=== PATIENT | male | born 1975 | race Caucasian/White ===

== ENCOUNTER → 2017-05-02 | Emergency (ER) | payer SELFPAY ==
[~2017-05-02] MED LIST: AMLO10TA2 PO; CYCL5TAB PO; FAMO-79 PO; HYDR-3240 PO; IBUP400T PO; LISI-170; LISI-170 PO; LISI40TA PO; LORA-445 PO; LORA-446 PO; LORA1TAB PO; METO-93 PO; METO-95; METO25TA35 PO; OMEP20TA62 PO; ONDA4TAB10; ONDA4TAB7 PO; ONDANSETRON 2MG/ML, 2ML ONE; PROP20TA PO; RANI150T8 PO; SERT50TA PO; [UNRECOGNIZED DRUG - REMARK]
[2017-05-05 09:23] LABS: ASPARTATE AMINO TRANSFERASE 30 U/L (15-37); BLOOD UREA NITROGEN 17 mg/dL (7-18)
== END ==
LOC: ED 11:47
DX: K52.9 Noninfective gastroenteritis and colitis, unspecified (principal); I10 Essential (primary) hypertension; F17.200 Nicotine dependence, unspecified, uncomplicated
CPT/HCPCS: 36415; 80048; 80076; 81001; 83690; 85025; 87086; 99284

== ENCOUNTER 2017-06-11 16:15 | Emergency (ER) | payer SELFPAY ==
[~2017-06-11] VITALS: Ht 167.6 cm; Wt 89.5 kg
[~2017-06-11 16:15] MED LIST changes: -ONDANSETRON 2MG/ML, 2ML ONE
[2017-06-11] MEDS ORDERED: OMEP20TA62 PO (16:23)
[2017-06-11] MEDS ORDERED: MAALOX/HYOSCYAMINE/LIDOCAINE 45 ML BOTTLE ONE (16:30)
[2017-06-11] MEDS ORDERED: MAALOX/HYOSCYAMINE/LIDOCAINE 45 ML BOTTLE PO ONE (16:30)
[2017-06-11] MEDS ORDERED: ONDANSETRON 2MG/ML, 2ML IVPush ONE (16:30)
[2017-06-11] MEDS ORDERED: ONDANSETRON 2MG/ML, 2ML ONE (16:30)
[2017-06-11] MEDS ORDERED: PLEASE ENTER HEIGHT AND WEIGHT MC SCH (16:30)
[2017-06-11] MEDS ORDERED: FAMOTIDINE 20 MG/2 ML ONE (16:30)
[2017-06-11] MEDS ORDERED: SODIUM CHLORIDE FLUSH 10ML SYR IVF ONE (16:30)
[2017-06-11] MEDS ORDERED: ENALAPRILAT 1.25 MG/ML, 2ML IV ONE (16:30)
[2017-06-11] MEDS ORDERED: SODIUM CHLORIDE 0.9% 1,000ML IVBOLUS ONE (16:30)
[2017-06-11] MEDS ORDERED: FAMOTIDINE 20 MG/2 ML IVP ONE (16:30)
[2017-06-11] MEDS ORDERED: ENALAPRILAT 1.25 MG/ML, 2ML ONE (16:53)
[2017-06-11 16:55] LABS: ASPARTATE AMINO TRANSFERASE 40 U/L (15-37); BLOOD UREA NITROGEN 14 mg/dL (7-18)
[2017-06-11 18:19] VITALS: BP 121/66
== END 2017-06-11 18:22 | disposition home or self-care (01) ==
LOC: ED 17:13
DX: K29.20 Alcoholic gastritis without bleeding (principal); K21.9 Gastro-esophageal reflux disease without esophagitis; I10 Essential (primary) hypertension; E86.0 Dehydration; F17.200 Nicotine dependence, unspecified, uncomplicated
CPT/HCPCS: 36415; 80053; 83690; 85025; 96361; 96374; 96375; 99285; J2405; J7030; S0028

== ENCOUNTER 2017-06-25 18:24 | Emergency (ER) | payer SELFPAY ==
[~2017-06-25] VITALS: Ht 167.6 cm; Wt 90.0 kg
[2017-06-25] MEDS ORDERED: LORazepam 2 MG/ML, 1ML IVPush ONE (19:00)
[2017-06-25] MEDS ORDERED: SODIUM CHLORIDE FLUSH 10ML SYR IVF ONE (19:00)
[2017-06-25] MEDS ORDERED: SODIUM CHLORIDE 0.9% 1,000ML IVBOLUS ONE (19:00)
[2017-06-25] MEDS ORDERED: LORazepam 2 MG/ML, 1ML ONE (19:01)
[2017-06-25 19:36] LABS: BLOOD UREA NITROGEN 11 mg/dL (7-18)
[2017-06-25 19:43] LABS: IS PT STATUS REG ER OR PRE ER? YES
[2017-06-25 19:54] VITALS: BP 119/76
== END 2017-06-25 20:42 | disposition home or self-care (01) ==
LOC: ED 19:40
DX: F41.1 Generalized anxiety disorder (principal); R06.4 Hyperventilation; I10 Essential (primary) hypertension; K21.9 Gastro-esophageal reflux disease without esophagitis; E86.0 Dehydration
CPT/HCPCS: 36415; 71010; 80048; 82040; 84484; 85025; 93005; 96361; 96374; 99285; J2060; J7030

== ENCOUNTER 2017-07-04 10:50 | Emergency (ER) | payer OTHER ==
[~2017-07-04] VITALS: Ht 167.6 cm; Wt 93.0 kg
[2017-07-04] MEDS ORDERED: ONDANSETRON 2MG/ML, 2ML IVPush ONE (11:00)
[2017-07-04] MEDS ORDERED: SODIUM CHLORIDE 0.9% 1,000ML IVBOLUS ONE (11:00)
[2017-07-04] MEDS ORDERED: FAMOTIDINE 20 MG/2 ML IVP ONE (11:00)
[2017-07-04] MEDS ORDERED: SODIUM CHLORIDE FLUSH 10ML SYR IVF ONE (11:00)
[2017-07-04] MEDS ORDERED: LORazepam 2 MG/ML, 1ML IVPush ONE (11:00)
[2017-07-04] MEDS ORDERED: ONDANSETRON 2MG/ML, 2ML ONE (11:01)
[2017-07-04] MEDS ORDERED: LORazepam 2 MG/ML, 1ML ONE (11:03)
[2017-07-04] MEDS ORDERED: FAMOTIDINE 20 MG/2 ML ONE (11:03)
[2017-07-04 11:33] LABS: HEMATOCRIT 53.2 % (39.2-51.8); WHITE BLOOD COUNT 5.7 x10^3/uL (3.4-10)
[2017-07-04 11:46] LABS: BLOOD UREA NITROGEN 14 mg/dL (7-18)
[2017-07-04 11:50] LABS: ASPARTATE AMINO TRANSFERASE 45 U/L (15-37)
[2017-07-04] MEDS ORDERED: MAALOX/HYOSCYAMINE/LIDOCAINE 45 ML BTL ONE (12:50)
[2017-07-04] MEDS ORDERED: MAALOX/HYOSCYAMINE/LIDOCAINE 45 ML BTL PO ONE (13:00)
[2017-07-04 15:09] VITALS: BP 123/87
== END 2017-07-04 15:11 | disposition home or self-care (01) ==
LOC: ED 15:00
DX: K29.20 Alcoholic gastritis without bleeding (principal); K21.9 Gastro-esophageal reflux disease without esophagitis; I10 Essential (primary) hypertension
CPT/HCPCS: 36415; 80053; 83605; 83690; 85025; 93005; 96361; 96374; 96375; 99285; J2060; J2405; J7030; S0028

== ENCOUNTER 2017-07-10 02:22 | Emergency (ER) | payer OTHER ==
[~2017-07-10] VITALS: Ht 167.6 cm; Wt 92.0 kg
[2017-07-10] MEDS ORDERED: SODIUM CHLORIDE FLUSH 10ML SYR IVF ONE (02:30)
[2017-07-10 02:56] LABS: HEMOGLOBIN 17.5 g/dL (13.7-18.0)
[2017-07-10 03:05] LABS: ASPARTATE AMINO TRANSFERASE 41 U/L (15-37); BLOOD UREA NITROGEN 12 mg/dL (7-18)
[2017-07-10 04:40] VITALS: BP 137/85
== END 2017-07-10 04:41 | disposition home or self-care (01) ==
LOC: ED 02:38
DX: K29.20 Alcoholic gastritis without bleeding (principal); I10 Essential (primary) hypertension; K21.9 Gastro-esophageal reflux disease without esophagitis; F17.200 Nicotine dependence, unspecified, uncomplicated
CPT/HCPCS: 36415; 80053; 81003; 83690; 85025; 99284

== ENCOUNTER 2017-08-20 18:06 | Emergency (ER) | payer OTHER ==
[~2017-08-20] VITALS: Ht 167.6 cm; Wt 89.4 kg
[~2017-08-20 18:06] MED LIST changes: +IBUP-1221 PO; -IBUP400T PO
[2017-08-20] MEDS ORDERED: HYDROcodone/APAP 7.5-325MG/15ML UDC ONE (18:27)
[2017-08-20] MEDS ORDERED: HYDROcodone/APAP 7.5-325MG/15ML UDC PO ONE (18:30)
[2017-08-20 18:33] LABS: HEMATOCRIT 54.6 % (39.2-51.8); HEMOGLOBIN 18.7 g/dL (13.7-18.0); WHITE BLOOD COUNT 9.8 x10^3/uL (3.4-10)
[2017-08-20 18:44] LABS: BLOOD UREA NITROGEN 15 mg/dL (7-18)
[2017-08-20 19:43] VITALS: BP 137/88
== END 2017-08-20 19:45 | disposition home or self-care (01) ==
LOC: ED 19:40
DX: J20.9 Acute bronchitis, unspecified (principal); F17.210 Nicotine dependence, cigarettes, uncomplicated; K21.9 Gastro-esophageal reflux disease without esophagitis; I10 Essential (primary) hypertension
CPT/HCPCS: 36415; 71020; 80048; 82040; 85025; 99285

== ENCOUNTER 2017-09-13 09:54 | Emergency (ER) | payer SELFPAY ==
[~2017-09-13] VITALS: Ht 167.6 cm; Wt 92.1 kg
[2017-09-13 10:30] LABS: HEMATOCRIT 52.7 % (39.2-51.8); HEMOGLOBIN 18.4 g/dL (13.7-18.0); WHITE BLOOD COUNT 6.1 x10^3/uL (3.4-10)
[2017-09-13] MEDS ORDERED: SODIUM CHLORIDE 0.9% 1,000ML IVBOLUS ONE (10:30)
[2017-09-13] MEDS ORDERED: ONDANSETRON 2MG/ML, 2ML IVPush ONE (10:30)
[2017-09-13] MEDS ORDERED: FAMOTIDINE 20 MG/2 ML IVPush ONE (10:30)
[2017-09-13] MEDS ORDERED: SODIUM CHLORIDE FLUSH 10ML SYR IVF ONE (10:30)
[2017-09-13] MEDS ORDERED: MORPHINE SULFATE 4 MG/ML, 1ML IVPush PRN (10:30)
[2017-09-13 10:44] LABS: BLOOD UREA NITROGEN 13 mg/dL (7-18)
[2017-09-13 10:48] LABS: ASPARTATE AMINO TRANSFERASE 48 U/L (15-37)
[2017-09-13] MEDS ORDERED: FAMOTIDINE 20 MG/2 ML ONE (11:25)
[2017-09-13] MEDS ORDERED: ONDANSETRON 2MG/ML, 2ML ONE (11:26)
[2017-09-13] MEDS ORDERED: OMNIPAQUE 350 MG/ML, 100ML BOTTLE ONE (11:47)
[2017-09-13 13:20] VITALS: BP 125/89
== END 2017-09-13 11:12 | disposition home or self-care (01) ==
LOC: ED 10:51
DX: K60.0 Acute anal fissure (principal); A09 Infectious gastroenteritis and colitis, unspecified
CPT/HCPCS: 36415; 74177; 80053; 85025; 85610; 85730; 96361; 96374; 96375; 99285; J2405; J7030; Q9967; S0028

== ENCOUNTER 2017-09-26 08:31 | Emergency (ER) | payer SELFPAY ==
[~2017-09-26] VITALS: Ht 167.6 cm; Wt 92.0 kg
[2017-09-26] MEDS ORDERED: MAALOX/HYOSCYAMINE/LIDOCAINE 45 ML BTL PO ONE (09:30)
[2017-09-26] MEDS ORDERED: LORazepam 2 MG/ML, 1ML IVPush ONE (09:30)
[2017-09-26] MEDS ORDERED: ONDANSETRON 2MG/ML, 2ML IVPush ONE (09:30)
[2017-09-26 09:53] LABS: HEMATOCRIT 54.6 % (39.2-51.8); HEMOGLOBIN 18.8 g/dL (13.7-18.0); WHITE BLOOD COUNT 4.5 x10^3/uL (3.4-10)
[2017-09-26 10:06] LABS: ASPARTATE AMINO TRANSFERASE 39 U/L (15-37); BLOOD UREA NITROGEN 13 mg/dL (7-18)
[2017-09-26] MEDS ORDERED: LORazepam 2 MG/ML, 1ML ONE (10:08)
[2017-09-26] MEDS ORDERED: ONDANSETRON 2MG/ML, 2ML ONE (10:08)
[2017-09-26] MEDS ORDERED: MAALOX/HYOSCYAMINE/LIDOCAINE 45 ML BTL ONE (10:09)
[2017-09-26 10:10] LABS: IS PT STATUS REG ER OR PRE ER? YES
[2017-09-26] MEDS ORDERED: PLEASE ENTER HEIGHT AND WEIGHT MC SCH (10:30)
[2017-09-26 11:52] VITALS: BP 135/83
[2017-09-26] MEDS ORDERED: LORA-446 PO (11:54)
[2017-09-26 12:15] LABS: IS PT STATUS REG ER OR PRE ER? YES
== END 2017-09-26 13:43 | disposition home or self-care (01) ==
LOC: ED 08:38
DX: I10 Essential (primary) hypertension (principal); F41.1 Generalized anxiety disorder; F17.210 Nicotine dependence, cigarettes, uncomplicated
CPT/HCPCS: 36415; 71010; 80053; 84484; 85025; 93005; 96374; 96375; 99285; J2060; J2405

== ENCOUNTER 2017-10-16 05:05 | Emergency (ER) | payer SELFPAY ==
[~2017-10-16] VITALS: Ht 167.6 cm; Wt 91.0 kg
[2017-10-16] MEDS ORDERED: ONDANSETRON 2MG/ML, 2ML IVPush ONE (05:30)
[2017-10-16] MEDS ORDERED: SODIUM CHLORIDE 0.9% 1,000ML IVBOLUS ONE (05:30)
[2017-10-16] MEDS ORDERED: MAALOX/HYOSCYAMINE/LIDOCAINE 45 ML BTL PO ONE (05:30)
[2017-10-16] MEDS ORDERED: SODIUM CHLORIDE FLUSH 10ML SYR IVF ONE (05:30)
[2017-10-16] MEDS ORDERED: FAMOTIDINE 20 MG/2 ML IVP ONE (05:30)
[2017-10-16] MEDS ORDERED: FAMOTIDINE 20 MG/2 ML ONE (05:36)
[2017-10-16] MEDS ORDERED: MAALOX/HYOSCYAMINE/LIDOCAINE 45 ML BTL ONE (05:36)
[2017-10-16] MEDS ORDERED: ONDANSETRON 2MG/ML, 2ML ONE (05:36)
[2017-10-16 06:14] LABS: HEMATOCRIT 49.8 % (39.2-51.8); WHITE BLOOD COUNT 6.8 x10^3/uL (3.4-10)
[2017-10-16 06:26] LABS: ASPARTATE AMINO TRANSFERASE 51 U/L (15-37); BLOOD UREA NITROGEN 13 mg/dL (7-18)
[2017-10-16 07:08] LABS: IS PT STATUS REG ER OR PRE ER? YES
[2017-10-16 07:16] VITALS: BP 127/72
== END 2017-10-16 08:18 | disposition home or self-care (01) ==
LOC: ED 05:32
DX: K29.20 Alcoholic gastritis without bleeding (principal); K21.9 Gastro-esophageal reflux disease without esophagitis; I10 Essential (primary) hypertension
CPT/HCPCS: 36415; 74022; 80053; 81003; 83690; 84484; 85025; 93005; 96361; 96374; 96375; 99285; J2405; J7030; S0028

== ENCOUNTER 2018-05-07 14:46 | Emergency (ER) | payer MEDICAID ==
[~2018-05-07] VITALS: Ht 167.6 cm; Wt 88.6 kg
[~2018-05-07 14:46] MED LIST changes: +LORA0.5T PO; +PANT20TA2 PO; +RANI150T23 PO; -RANI150T8 PO
[2018-05-07 14:50] VITALS: BP 175/98
== END 2018-05-07 15:33 | disposition home or self-care (01) ==
LOC: ED 15:32
DX: J00 Acute nasopharyngitis [common cold] (principal); J01.00 Acute maxillary sinusitis, unspecified
CPT/HCPCS: 71046; 99284

== ENCOUNTER 2018-05-14 13:51 | Emergency (ER) | payer MEDICAID ==
[~2018-05-14] VITALS: Ht 167.6 cm; Wt 88.1 kg
[2018-05-14] MEDS ORDERED: SODIUM CHLORIDE 0.9% 1,000ML IVBOLUS ONE (14:30)
[2018-05-14] MEDS ORDERED: FAMOTIDINE 20 MG/2 ML IVP ONE (14:30)
[2018-05-14] MEDS ORDERED: SODIUM CHLORIDE FLUSH 10ML SYR IVF ONE (14:30)
[2018-05-14] MEDS ORDERED: ONDANSETRON ODT 4 MG PO ONE (14:30)
[2018-05-14] MEDS ORDERED: MAALOX/HYOSCYAMINE/LIDOCAINE 45 ML BTL PO ONE (14:30)
[2018-05-14] MEDS ORDERED: MAALOX/HYOSCYAMINE/LIDOCAINE 45 ML BTL ONE (14:34)
[2018-05-14] MEDS ORDERED: FAMOTIDINE 20 MG/2 ML ONE (14:35)
[2018-05-14] MEDS ORDERED: ONDANSETRON ODT 4 MG ONE (14:35)
[2018-05-14 14:49] LABS: BASOPHILS # (AUTO) 0.03 x10^3/uL (0-0.1); BASOPHILS % (AUTO) 1 % (0-1); EOSINOPHILS # (AUTO) 0.13 x10^3/uL (0-0.4); EOSINOPHILS % (AUTO) 2 % (1-7); LYMPHOCYTES # (AUTO) 1.45 x10^3/uL (1-3.4); LYMPHOCYTES % (AUTO) 22 % (22-44); MD NO; MEAN CORPUSCULAR HGB CONC 34.2 g/dL (33.2-36.2); MEAN CORPUSCULAR VOLUME 99.3 fL (81-97); MEAN PLATELET VOLUME 7.3 fL (7.4-10.4); MONOCYTES # (AUTO) 0.55 x10^3/uL (0.2-0.8); MONOCYTES % (AUTO) 8 % (2-9); NEUTROPHILS # (AUTO) 4.56 x10^3/uL (1.8-6.8); NEUTROPHILS % (AUTO) 68 % (42-75); PLATELET COUNT 150 x10^3/uL (130-400); RED BLOOD COUNT 5.32 x10^6/uL (4.38-5.82); RED CELL DISTRIBUTION WIDTH 12.5 % (9.4-14.8)
[2018-05-14 15:02] LABS: TROPONIN I < 0.015 ng/mL (0.000-0.045)
[2018-05-14 15:07] LABS: ALANINE AMINOTRANSFERASE 68 U/L (12-78); ALBUMIN 3.8 g/dL (3.4-5.0); ANION GAP 8 mmol/L (5-15); CALCIUM 9.1 mg/dL (8.5-10.1); CHLORIDE 103 mmol/L (98-107); CREATININE 0.95 mg/dL (0.7-1.3)
[2018-05-14 15:09] LABS: ALKALINE PHOSPHATASE 109 U/L (45-117); BILIRUBIN,TOTAL 0.7 mg/dL (0.2-1.0); TOTAL PROTEIN 8.1 g/dL (6.4-8.2)
[2018-05-14 16:23] VITALS: BP 128/67
[2018-05-14] MEDS ORDERED: PROMETHAZINE 25 MG/ML, 1ML ONE (16:43)
[2018-05-14] MEDS ORDERED: OMNIPAQUE 350 MG/ML, 100ML BOTTLE ONE (16:45)
[2018-05-14] MEDS ORDERED: PROMETHAZINE 25 MG/ML, 1ML IM ONE (17:00)
== END 2018-05-14 17:31 | disposition home or self-care (01) ==
LOC: ED 17:05
DX: R10.32 Left lower quadrant pain (principal); R11.2 Nausea with vomiting, unspecified; E86.0 Dehydration; I10 Essential (primary) hypertension; K21.9 Gastro-esophageal reflux disease without esophagitis; F17.200 Nicotine dependence, unspecified, uncomplicated
CPT/HCPCS: 36415; 74177; 80053; 83690; 84484; 85025; 93005; 96372; 96374; 99285; J2550; J7030; Q0162; Q9967; S0028

== ENCOUNTER 2018-06-03 17:47 | Emergency (ER) | payer MEDICAID ==
[~2018-06-03] VITALS: Ht 167.6 cm; Wt 88.9 kg
[2018-06-03] MEDS ORDERED: MAALOX/HYOSCYAMINE/LIDOCAINE 45 ML BTL PO ONE (18:30)
[2018-06-03] MEDS ORDERED: FAMOTIDINE 20 MG TABLET PO ONE (18:30)
[2018-06-03 18:36] LABS: MICROSCOPIC NOT IND
[2018-06-03 18:38] LABS: CULTURE INDICATED? NO
[2018-06-03] MEDS ORDERED: FAMOTIDINE 20 MG TABLET ONE (18:55)
[2018-06-03] MEDS ORDERED: MAALOX/HYOSCYAMINE/LIDOCAINE 45 ML BTL ONE (18:55)
[2018-06-03 18:58] VITALS: BP 140/93
[2018-06-03 19:09] LABS: BASOPHILS # (AUTO) 0.03 x10^3/uL (0-0.1); BASOPHILS % (AUTO) 0 % (0-1); EOSINOPHILS # (AUTO) 0.12 x10^3/uL (0-0.4); EOSINOPHILS % (AUTO) 1 % (1-7); LYMPHOCYTES # (AUTO) 2.37 x10^3/uL (1-3.4); LYMPHOCYTES % (AUTO) 27 % (22-44); MD NO; MEAN CORPUSCULAR HEMOGLOBIN 34.7 pg (27.5-34.5); MEAN CORPUSCULAR HGB CONC 34.7 g/dL (33.2-36.2); MEAN CORPUSCULAR VOLUME 99.8 fL (81-97); MEAN PLATELET VOLUME 7.5 fL (7.4-10.4); MONOCYTES # (AUTO) 0.81 x10^3/uL (0.2-0.8); MONOCYTES % (AUTO) 9 % (2-9); NEUTROPHILS # (AUTO) 5.55 x10^3/uL (1.8-6.8); NEUTROPHILS % (AUTO) 63 % (42-75); PLATELET COUNT 155 x10^3/uL (130-400); RED BLOOD COUNT 5.15 x10^6/uL (4.38-5.82); RED CELL DISTRIBUTION WIDTH 12.6 % (9.4-14.8)
[2018-06-03 19:10] LABS: ALANINE AMINOTRANSFERASE 76 U/L (12-78); ALBUMIN 3.7 g/dL (3.4-5.0); ANION GAP 10 mmol/L (5-15); CALCIUM 8.5 mg/dL (8.5-10.1); CHLORIDE 104 mmol/L (98-107)
[2018-06-03 19:12] LABS: ALKALINE PHOSPHATASE 114 U/L (45-117); BILIRUBIN,TOTAL 0.6 mg/dL (0.2-1.0); TOTAL PROTEIN 7.7 g/dL (6.4-8.2)
[2018-06-03] MEDS ORDERED: SODIUM CHLORIDE 0.9% 1,000ML IVBOLUS ONE (20:00)
[2018-06-03] MEDS ORDERED: SODIUM CHLORIDE FLUSH 10ML SYR IVF ONE (20:00)
[2018-06-03] MEDS ORDERED: ONDANSETRON ODT 4 MG ONE (20:14)
[2018-06-03] MEDS ORDERED: ONDANSETRON ODT 4 MG PO ONE (20:30)
== END 2018-06-03 20:29 | disposition home or self-care (01) ==
LOC: ED 19:21
DX: K85.20 Alcohol induced acute pancreatitis without necrosis or infection (principal); K29.20 Alcoholic gastritis without bleeding; F10.10 Alcohol abuse, uncomplicated; I10 Essential (primary) hypertension; K21.9 Gastro-esophageal reflux disease without esophagitis
CPT/HCPCS: 36415; 80053; 81003; 83690; 85025; 99284; Q0162

== ENCOUNTER 2018-06-25 06:54 | Emergency (ER) | payer MEDICAID ==
[~2018-06-25] VITALS: Ht 167.6 cm; Wt 88.0 kg
[2018-06-25 07:08] VITALS: BP 129/88
[2018-06-25] MEDS ORDERED: KETOROLAC 30 MG/1 ML IM ONE (08:00)
[2018-06-25] MEDS ORDERED: DIAZEPAM 5 MG TABLET PO ONE (08:00)
[2018-06-25] MEDS ORDERED: KETOROLAC 30 MG/1 ML ONE (08:02)
[2018-06-25] MEDS ORDERED: DIAZEPAM 5 MG TABLET ONE (08:02)
== END 2018-06-25 08:56 | disposition home or self-care (01) ==
LOC: ED 08:50
DX: S39.012A Strain of muscle, fascia and tendon of lower back, initial encounter (principal); G89.29 Other chronic pain; M51.36 Other intervertebral disc degeneration, lumbar region; X58.XXXA Exposure to other specified factors, initial encounter; Y93.89 Activity, other specified; Y92.89 Other specified places as the place of occurrence of the external cause; Y99.8 Other external cause status
CPT/HCPCS: 72110; 96372; 99284; J1885

== ENCOUNTER 2018-08-03 06:40 | Emergency (ER) | payer MEDICAID ==
[~2018-08-03] VITALS: Ht 167.6 cm; Wt 90.9 kg
[~2018-08-03 06:40] MED LIST changes: -AMLO10TA2 PO; +AMLO10TA6 PO
[2018-08-03] MEDS ORDERED: LORazepam 1MG TABLET ONE (07:52)
[2018-08-03 07:55] VITALS: BP 130/81
[2018-08-03] MEDS ORDERED: LORazepam 1MG TABLET PO ONE (08:00)
== END 2018-08-03 08:41 | disposition home or self-care (01) ==
LOC: ED 08:20
DX: F41.1 Generalized anxiety disorder (principal); K21.9 Gastro-esophageal reflux disease without esophagitis
CPT/HCPCS: 99284

== ENCOUNTER 2018-08-19 05:22 | Emergency (ER) | payer MEDICAID ==
[~2018-08-19] VITALS: Ht 167.6 cm; Wt 90.0 kg
[2018-08-19] MEDS ORDERED: ESOM20CA PO (05:35)
[2018-08-19 05:55] LABS: BASOPHILS # (AUTO) 0.04 x10^3/uL (0-0.1); BASOPHILS % (AUTO) 0 % (0-1); EOSINOPHILS # (AUTO) 0.01 x10^3/uL (0-0.4); EOSINOPHILS % (AUTO) 0 % (1-7); LYMPHOCYTES # (AUTO) 1.43 x10^3/uL (1-3.4); LYMPHOCYTES % (AUTO) 12 % (22-44); MD NO; MEAN CORPUSCULAR HEMOGLOBIN 34.9 pg (27.5-34.5); MEAN CORPUSCULAR HGB CONC 34.8 g/dL (33.2-36.2); MEAN CORPUSCULAR VOLUME 100.3 fL (81-97); MEAN PLATELET VOLUME 7.5 fL (7.4-10.4); MONOCYTES # (AUTO) 0.93 x10^3/uL (0.2-0.8); MONOCYTES % (AUTO) 8 % (2-9); NEUTROPHILS # (AUTO) 9.41 x10^3/uL (1.8-6.8); NEUTROPHILS % (AUTO) 80 % (42-75); PLATELET COUNT 147 x10^3/uL (130-400); RED BLOOD COUNT 5.41 x10^6/uL (4.38-5.82); RED CELL DISTRIBUTION WIDTH 12.5 % (9.4-14.8)
[2018-08-19] MEDS ORDERED: FAMOTIDINE 20 MG/2 ML ONE (05:59)
[2018-08-19] MEDS ORDERED: LORazepam 2 MG/ML, 1ML ONE (05:59)
[2018-08-19] MEDS ORDERED: LORazepam 2 MG/ML, 1ML IVPush ONE (06:00)
[2018-08-19] MEDS ORDERED: FAMOTIDINE 20 MG/2 ML IVP ONE (06:00)
[2018-08-19] MEDS ORDERED: SODIUM CHLORIDE 0.9% 1,000ML IVBOLUS ONE (06:00)
[2018-08-19 06:06] LABS: ALANINE AMINOTRANSFERASE 83 U/L (12-78); ALBUMIN 3.9 g/dL (3.4-5.0); ANION GAP 12 mmol/L (5-15); CHLORIDE 103 mmol/L (98-107); CREATININE 0.88 mg/dL (0.7-1.3)
[2018-08-19 06:11] LABS: ALKALINE PHOSPHATASE 116 U/L (45-117); TOTAL PROTEIN 8.3 g/dL (6.4-8.2); TROPONIN I < 0.015 ng/mL (0.000-0.045)
[2018-08-19] MEDS ORDERED: OMNIPAQUE 350 MG/ML, 100ML BOTTLE ONE (06:37)
[2018-08-19] MEDS ORDERED: MORPHINE SULFATE 4 MG/ML, 1ML ONE (07:27)
[2018-08-19] MEDS ORDERED: morphine SULFATE 10 MG/ML, 1ML IVPush ONE (07:30)
[2018-08-19 07:59] VITALS: BP 138/93
== END 2018-08-19 08:11 | disposition home or self-care (01) ==
LOC: ED 06:09
DX: R10.31 Right lower quadrant pain (principal); R10.32 Left lower quadrant pain; F10.20 Alcohol dependence, uncomplicated; F15.20 Other stimulant dependence, uncomplicated
CPT/HCPCS: 36415; 71045; 74177; 80053; 80307; 83690; 84484; 85025; 93005; 96374; 96375; 99285; J2060; J2270; J7030; Q9967; S0028

== ENCOUNTER 2018-09-28 02:37 | Emergency (ER) | payer MEDICAID ==
[~2018-09-28] VITALS: Ht 167.6 cm; Wt 92.8 kg
[~2018-09-28 02:37] MED LIST changes: +ESOM20CA PO
[2018-09-28] MEDS ORDERED: DIAZEPAM 5 MG TABLET PO ONE (03:00)
[2018-09-28] MEDS ORDERED: IBUPROFEN 200 MG TABLET PO ONE (03:00)
[2018-09-28] MEDS ORDERED: IBUPROFEN 200 MG TABLET ONE (03:17)
[2018-09-28] MEDS ORDERED: DIAZEPAM 5 MG TABLET ONE (03:18)
[2018-09-28 03:21] VITALS: BP 135/76
== END 2018-09-28 03:32 | disposition home or self-care (01) ==
LOC: ED 03:00
DX: S39.012A Strain of muscle, fascia and tendon of lower back, initial encounter (principal); S16.1XXA Strain of muscle, fascia and tendon at neck level, initial encounter; I10 Essential (primary) hypertension; K21.9 Gastro-esophageal reflux disease without esophagitis; F17.200 Nicotine dependence, unspecified, uncomplicated; V83.9XXA Unspecified occupant of special industrial vehicle injured in nontraffic accident, initial encounter; Y93.89 Activity, other specified; Y92.69 Other specified industrial and construction area as the place of occurrence of the external cause; Y99.0 Civilian activity done for income or pay
CPT/HCPCS: 99283

== ENCOUNTER 2018-10-19 09:24 | Observation (INO) | payer MEDICAID ==
[~2018-10-19] VITALS: Ht 167.6 cm; Wt 93.7 kg
[2018-10-19] MEDS ORDERED: FAMO-79 PO (09:58)
[2018-10-19 10:05] LABS: BASOPHILS # (AUTO) 0.02 x10^3/uL (0-0.1); BASOPHILS % (AUTO) 0 % (0-1); EOSINOPHILS # (AUTO) 0.04 x10^3/uL (0-0.4); EOSINOPHILS % (AUTO) 0 % (1-7); LYMPHOCYTES # (AUTO) 2.15 x10^3/uL (1-3.4); LYMPHOCYTES % (AUTO) 21 % (22-44); MD NO; MEAN CORPUSCULAR HEMOGLOBIN 34.7 pg (27.5-34.5); MEAN CORPUSCULAR HGB CONC 34.6 g/dL (33.2-36.2); MEAN CORPUSCULAR VOLUME 100.1 fL (81-97); MEAN PLATELET VOLUME 7.4 fL (7.4-10.4); MONOCYTES # (AUTO) 0.64 x10^3/uL (0.2-0.8); MONOCYTES % (AUTO) 6 % (2-9); NEUTROPHILS # (AUTO) 7.18 x10^3/uL (1.8-6.8); NEUTROPHILS % (AUTO) 72 % (42-75); PLATELET COUNT 167 x10^3/uL (130-400); RED BLOOD COUNT 5.56 x10^6/uL (4.38-5.82); RED CELL DISTRIBUTION WIDTH 12.8 % (9.4-14.8)
[2018-10-19 10:17] LABS: ALANINE AMINOTRANSFERASE 116 U/L (12-78); ALBUMIN 4.2 g/dL (3.4-5.0); ANION GAP 11 mmol/L (5-15); CALCIUM 9.1 mg/dL (8.5-10.1); CHLORIDE 105 mmol/L (98-107)
[2018-10-19 10:22] LABS: ALKALINE PHOSPHATASE 134 U/L (45-117); BILIRUBIN,TOTAL 1.2 mg/dL (0.2-1.0); CREATININE 1.03 mg/dL (0.7-1.3); TOTAL PROTEIN 8.8 g/dL (6.4-8.2); TROPONIN I < 0.015 ng/mL (0.000-0.045)
[2018-10-19 10:22] LABS: MICROSCOPIC AUTO
[2018-10-19] MEDS ORDERED: ONDANSETRON ODT 4 MG PO ONE (12:00)
[2018-10-19] MEDS ORDERED: MAALOX/HYOSCYAMINE/LIDOCAINE 45 ML BTL PO ONE (12:00)
[2018-10-19] MEDS ORDERED: KETOROLAC 30 MG/1 ML IM ONE (12:00)
[2018-10-19] MEDS ORDERED: KETOROLAC 30 MG/1 ML ONE (12:15)
[2018-10-19] MEDS ORDERED: ONDANSETRON ODT 4 MG ONE (12:15)
[2018-10-19] MEDS ORDERED: MAALOX/HYOSCYAMINE/LIDOCAINE 45 ML BTL ONE (12:15)
[2018-10-19] MEDS ORDERED: ASPIRIN 81 MG TABLET CHEW PO ONE (14:00)
[2018-10-19] MEDS ORDERED: ASPIRIN 81 MG TABLET CHEW ONE (14:13)
[2018-10-19] MEDS ORDERED: NITROGLYCERIN SINGLE TAB 0.4 MG SL PRN (15:00)
[2018-10-19] MEDS ORDERED: morphine SULFATE 10 MG/ML, 1ML IV PRN (15:00)
[2018-10-19] MEDS ORDERED: SODIUM CHLORIDE 0.9% 1,000 ML IV SCH (15:00)
[2018-10-19] MEDS ORDERED: ENOXAPARIN 40 MG/0.4 ML ONE (15:00)
[2018-10-19] MEDS ORDERED: NITROGLYCERIN 0.4 MG BOTTLE (25 TABS) SL PRN (15:00)
[2018-10-19] MEDS ORDERED: POLYETHYLENE GLYCOL 17 GM PACKET PO PRN (15:00)
[2018-10-19] MEDS ORDERED: ACETAMINOPHEN 650 MG/20.3 ML UDC PO PRN (15:00)
[2018-10-19] MEDS ORDERED: ONDANSETRON 2MG/ML, 2ML IVP PRN (15:00)
[2018-10-19] MEDS ORDERED: MAALOX/HYOSCYAMINE/LIDOCAINE 45 ML BTL PO PRN (15:00)
[2018-10-19] MEDS ORDERED: NITROGLYCERIN 0.4 MG/SPRAY SL PRN (15:00)
[2018-10-19] MEDS: ENOXAPARIN 40 MG/0.4 ML SQ SCH (15:01)
[2018-10-19] MEDS ORDERED: POLY17PO5 PO (15:31)
[2018-10-19] MEDS: SODIUM CHLORIDE 0.9% 1,000 ML IV SCH (15:37)
[2018-10-19 15:38] VITALS: BP 112/79
[2018-10-19 16:00] LABS: BARBITURATE SCREEN, URINE Negative (Negative); BENZODIAZEPINE SCREEN, URINE Negative (Negative); CANNABINOID SCREEN, URINE Negative (Negative); COCAINE SCREEN, URINE Negative (Negative); METHADONE SCREEN, URINE Negative (Negative); OPIATE SCREEN, URINE Negative (Negative)
[2018-10-19 16:08] LABS: AMPHETAMINE SCREEN, URINE Positive (Negative)
[2018-10-19 16:24] LABS: CHOLESTEROL, TOTAL 205 mg/dL (140-239); TRIGLYCERIDES 116 mg/dL (50-200); VLDL CHOLESTEROL 23 mg/dL (0-25)
[2018-10-19 16:28] LABS: CHOL/HDL RATIO 4.9; HDL CHOL % 20 % (26-37); HDL CHOLESTEROL (DIRECT) 42 mg/dL (40-60); LDL CHOLESTEROL,CALCULATED 140 mg/dL (54-169); LDL/HDL RATIO 3.3 (0.5-3.0); TROPONIN I < 0.015 ng/mL (0.000-0.045)
[2018-10-19] MEDS: LORazepam 0.5MG TABLET PO PRN (17:57)
[2018-10-19 18:37] LABS: TROPONIN I < 0.015 ng/mL (0.000-0.045)
[2018-10-19 19:34] VITALS: BP 110/66
[2018-10-19] MEDS: SODIUM CHLORIDE FLUSH 10ML SYR IVF SCH (19:46)
[2018-10-19] MEDS ORDERED: METOPROLOL TARTRATE 25 MG TABLET PO SCH (21:00)
[2018-10-20] MEDS: SODIUM CHLORIDE 0.9% 1,000 ML IV SCH ×3 (00:24→16:48)
[2018-10-20 00:39] VITALS: BP 108/66
[2018-10-20 05:34] LABS: CHLORIDE 101 mmol/L (98-107)
[2018-10-20] MEDS: ASPIRIN 325 MG TABLET EC PO SCH (05:38)
[2018-10-20 05:48] LABS: BASOPHILS # (AUTO) 0.02 x10^3/uL (0-0.1); BASOPHILS % (AUTO) 0 % (0-1); EOSINOPHILS # (AUTO) 0.17 x10^3/uL (0-0.4); EOSINOPHILS % (AUTO) 3 % (1-7); LYMPHOCYTES # (AUTO) 1.73 x10^3/uL (1-3.4); LYMPHOCYTES % (AUTO) 33 % (22-44); MD NO; MEAN CORPUSCULAR HEMOGLOBIN 34.6 pg (27.5-34.5); MEAN CORPUSCULAR HGB CONC 34.6 g/dL (33.2-36.2); MEAN CORPUSCULAR VOLUME 100.1 fL (81-97); MEAN PLATELET VOLUME 7.7 fL (7.4-10.4); MONOCYTES % (AUTO) 9 % (2-9); NEUTROPHILS # (AUTO) 2.91 x10^3/uL (1.8-6.8); NEUTROPHILS % (AUTO) 55 % (42-75); PLATELET COUNT 108 x10^3/uL (130-400); RED BLOOD COUNT 4.95 x10^6/uL (4.38-5.82); RED CELL DISTRIBUTION WIDTH 12.6 % (9.4-14.8)
[2018-10-20 06:09] LABS: ALANINE AMINOTRANSFERASE 80 U/L (12-78); ALBUMIN 3.2 g/dL (3.4-5.0); ALKALINE PHOSPHATASE 105 U/L (45-117); ANION GAP 9 mmol/L (5-15); BILIRUBIN,TOTAL 1.2 mg/dL (0.2-1.0); CALCIUM 8.3 mg/dL (8.5-10.1); CREATININE 1.11 mg/dL (0.7-1.3)
[2018-10-20 07:54] VITALS: BP 120/70
[2018-10-20] MEDS: LISINOPRIL 20 MG TABLET PO SCH (07:58)
[2018-10-20] MEDS: FAMOTIDINE 20 MG TABLET PO SCH (07:58)
[2018-10-20] MEDS: FOLIC ACID 1 MG TABLET PO SCH (07:58)
[2018-10-20] MEDS: THIAMINE 100MG TABLET PO SCH (07:58)
[2018-10-20] MEDS: SODIUM CHLORIDE FLUSH 10ML SYR IVF SCH ×2 (07:59→19:59)
[2018-10-20 15:58] VITALS: BP 131/74
[2018-10-20] MEDS: ENOXAPARIN 40 MG/0.4 ML SQ SCH (16:47)
[2018-10-20] MEDS: LORazepam 0.5MG TABLET PO PRN (16:47)
[2018-10-20 19:30] VITALS: BP 136/81
[2018-10-21 01:49] VITALS: BP 128/82
[2018-10-21] MEDS: SODIUM CHLORIDE 0.9% 1,000 ML IV SCH ×2 (02:14→10:00)
[2018-10-21] MEDS: ASPIRIN 325 MG TABLET EC PO SCH (05:12)
[2018-10-21] MEDS: SODIUM CHLORIDE FLUSH 10ML SYR IVF SCH (09:00)
[2018-10-21 09:03] VITALS: BP 144/93
[2018-10-21] MEDS: LISINOPRIL 20 MG TABLET PO SCH (11:27)
[2018-10-21] MEDS: FOLIC ACID 1 MG TABLET PO SCH (11:28)
[2018-10-21] MEDS: THIAMINE 100MG TABLET PO SCH (11:28)
[2018-10-21] MEDS: FAMOTIDINE 20 MG TABLET PO SCH (11:29)
[2018-10-21] MEDS ORDERED: ATOR40TA PO (14:21)
[2018-10-21] MEDS ORDERED: FOLI-17 PO (14:21)
[2018-10-21] MEDS ORDERED: ASPI-650 PO (14:21)
[2018-10-21] MEDS ORDERED: THIA100T67 PO (14:21)
[2018-10-21] MEDS ORDERED: CARV3.122 PO (14:21)
[2018-10-21] MEDS: ENOXAPARIN 40 MG/0.4 ML SQ SCH (14:43)
== END 2018-10-21 15:53 | disposition home or self-care (01) ==
LOC: ED 10:22 → INTOOBSV 14:04 → EDIP 14:04 → 5SO 15:19
PROVIDERS: ADMIT Internal Medicine; ATTEND Internal Medicine
DX: R07.89 Other chest pain (principal); R00.0 Tachycardia, unspecified; F41.9 Anxiety disorder, unspecified; F14.10 Cocaine abuse, uncomplicated; F15.90 Other stimulant use, unspecified, uncomplicated; F17.210 Nicotine dependence, cigarettes, uncomplicated; I10 Essential (primary) hypertension; K21.9 Gastro-esophageal reflux disease without esophagitis; K29.20 Alcoholic gastritis without bleeding; K59.09 Other constipation; K70.30 Alcoholic cirrhosis of liver without ascites; Z83.3 Family history of diabetes mellitus
CPT/HCPCS: 36415; 71045; 76700; 78452; 80053; 80061; 80074; 80307; 81001; 82607; 83735; 84443; 84484; 85025; 93005; 93017; 93306; 96360; 96361; 96372; 99284; A9502; C9898; G0378; J1650; J1885; J7030; Q0162

== ENCOUNTER 2018-11-06 15:12 | Emergency (ER) | payer MEDICAID ==
[~2018-11-06] VITALS: Ht 167.6 cm; Wt 80.0 kg
[~2018-11-06 15:12] MED LIST changes: +ASPI-650 PO; +ATOR40TA PO; +CARV3.122 PO; +FOLI-17 PO; +POLY17PO5 PO; +THIA100T67 PO
[2018-11-06] MEDS ORDERED: FAMOTIDINE 20 MG/2 ML ONE (15:55)
[2018-11-06] MEDS ORDERED: ONDANSETRON 2MG/ML, 2ML ONE (15:55)
[2018-11-06 15:59] LABS: BASOPHILS # (AUTO) 0.08 x10^3/uL (0-0.1); BASOPHILS % (AUTO) 1 % (0-1); EOSINOPHILS # (AUTO) 0.09 x10^3/uL (0-0.4); EOSINOPHILS % (AUTO) 1 % (1-7); LYMPHOCYTES # (AUTO) 1.54 x10^3/uL (1-3.4); LYMPHOCYTES % (AUTO) 25 % (22-44); MD NO; MEAN CORPUSCULAR HEMOGLOBIN 34.4 pg (27.5-34.5); MEAN CORPUSCULAR HGB CONC 34.7 g/dL (33.2-36.2); MEAN CORPUSCULAR VOLUME 99.1 fL (81-97); MEAN PLATELET VOLUME 7.5 fL (7.4-10.4); MONOCYTES # (AUTO) 0.63 x10^3/uL (0.2-0.8); MONOCYTES % (AUTO) 10 % (2-9); NEUTROPHILS # (AUTO) 3.74 x10^3/uL (1.8-6.8); NEUTROPHILS % (AUTO) 62 % (42-75); PLATELET COUNT 126 x10^3/uL (130-400); RED BLOOD COUNT 5.29 x10^6/uL (4.38-5.82); RED CELL DISTRIBUTION WIDTH 12.9 % (9.4-14.8)
[2018-11-06] MEDS ORDERED: SODIUM CHLORIDE FLUSH 10ML SYR IVF ONE (16:00)
[2018-11-06] MEDS ORDERED: FAMOTIDINE 20 MG/2 ML IVP ONE (16:00)
[2018-11-06] MEDS ORDERED: ONDANSETRON 2MG/ML, 2ML IVPush ONE (16:00)
[2018-11-06 16:08] LABS: ALANINE AMINOTRANSFERASE 86 U/L (12-78); ALBUMIN 3.5 g/dL (3.4-5.0); ANION GAP 10 mmol/L (5-15); CALCIUM 8.6 mg/dL (8.5-10.1); CHLORIDE 103 mmol/L (98-107)
[2018-11-06 16:11] LABS: ALKALINE PHOSPHATASE 142 U/L (45-117); BILIRUBIN,TOTAL 0.9 mg/dL (0.2-1.0); CREATININE 0.97 mg/dL (0.7-1.3); TOTAL PROTEIN 7.9 g/dL (6.4-8.2)
[2018-11-06] MEDS ORDERED: DICYCLOMINE 10 MG/ML, 2ML IM ONE (17:00)
[2018-11-06] MEDS ORDERED: DICYCLOMINE 10 MG/ML, 2ML ONE (17:01)
[2018-11-06 17:04] VITALS: BP 131/88
== END 2018-11-06 17:50 | disposition home or self-care (01) ==
LOC: ED 16:25
DX: K52.89 Other specified noninfective gastroenteritis and colitis (principal); E86.9 Volume depletion, unspecified; K21.9 Gastro-esophageal reflux disease without esophagitis; F41.1 Generalized anxiety disorder
CPT/HCPCS: 36415; 80053; 83690; 85025; 96372; 96374; 96375; 99283; J0500; J2405; J3490

== ENCOUNTER 2018-12-20 08:54 | Emergency (ER) | payer MEDICAID ==
[~2018-12-20] VITALS: Ht 167.6 cm; Wt 94.0 kg
[~2018-12-20 08:54] MED LIST changes: -AMLO10TA6 PO; +AMLO10TA8 PO
[2018-12-20 08:55] VITALS: BP 130/85
[2018-12-20] MEDS ORDERED: KETOROLAC 30 MG/1 ML IM ONE (09:30)
[2018-12-20] MEDS ORDERED: KETOROLAC 30 MG/1 ML ONE (09:32)
--- NOTE | 2018-12-20 09:50 | NUR ---
Patient/Caregiver given discharge instructions and they have confirmed that they understand the instructions. Patient ambulatory with steady gait.
== END 2018-12-20 09:52 | disposition home or self-care (01) ==
LOC: ED 09:46
DX: M47.896 Other spondylosis, lumbar region (principal); I10 Essential (primary) hypertension; K21.9 Gastro-esophageal reflux disease without esophagitis; F17.200 Nicotine dependence, unspecified, uncomplicated
CPT/HCPCS: 96372; 99283; J1885

== ENCOUNTER 2019-04-01 09:57 | Emergency (ER) | payer MEDICAID ==
[~2019-04-01] VITALS: Ht 167.6 cm; Wt 95.5 kg
[2019-04-01] MEDS ORDERED: MAALOX/HYOSCYAMINE/LIDOCAINE 45 ML BTL PO ONE (10:30)
[2019-04-01] MEDS ORDERED: METO25TA35 PO (10:31)
[2019-04-01] MEDS ORDERED: DIAZ5TAB PO (10:31)
[2019-04-01] MEDS ORDERED: TRAM50TA2 PO (10:31)
[2019-04-01] MEDS ORDERED: MAALOX/HYOSCYAMINE/LIDOCAINE 45 ML BTL ONE (10:34)
--- NOTE | 2019-04-01 10:40 | NUR ---
LATE NOTE ENTRY FOR 958: Pt presents to ED by EMS c/o generalized abdominal pain, chest pain, nausea, vomitting, and dizziness. Pt expressed to EMS that it "felt like the last time I had gastritis." Per EMS, "patent reports drinking heaviy for the last several days. Patient admits to meth use at midnight last night. Patient had one episode of emesis and last BM was this morning." Pt states he, "use to drink heavy every day, but quit driking daily back in 2007." Pt admits to drinking all weekend long celebrating [facility]. Pt states, "I did a bump of meth last night around midnight so I could have sex. My last drink was around that time too." Pt states, "this morning I went to stretch and my hands started cramping up and the back of my things did too." Pt denies loc, radiation of chest pain, diarrhea, sob, or trauma. Pt states, "I have had a stress test and a heart work up before." Pt connected to NIBP, continous pulse ox, and clinical support associate. PIV in right AC (18 g) placed prior to arrival. Pt reported to EMS that he took his metoprolol and lisinopril this morning. Pt recieved 250 mL NS and 4 mg Zofran from EMS. Both bedrails up for safety measures. Call light within reach. NADN. No needs expressed.
[2019-04-01 10:50] LABS: BASOPHILS # (AUTO) 0.02 x10^3/uL (0-0.1); BASOPHILS % (AUTO) 0 % (0-1); EOSINOPHILS # (AUTO) 0.08 x10^3/uL (0-0.4); EOSINOPHILS % (AUTO) 1 % (1-7); LYMPHOCYTES # (AUTO) 1.49 x10^3/uL (1-3.4); LYMPHOCYTES % (AUTO) 24 % (22-44); MD NO; MEAN CORPUSCULAR HEMOGLOBIN 35.5 pg (27.5-34.5); MEAN CORPUSCULAR HGB CONC 35.1 g/dL (33.2-36.2); MEAN PLATELET VOLUME 7.1 fL (7.4-10.4); MONOCYTES # (AUTO) 0.64 x10^3/uL (0.2-0.8); MONOCYTES % (AUTO) 10 % (2-9); NEUTROPHILS # (AUTO) 4.09 x10^3/uL (1.8-6.8); NEUTROPHILS % (AUTO) 65 % (42-75); PLATELET COUNT 131 x10^3/uL (130-400); RED BLOOD COUNT 5.02 x10^6/uL (4.38-5.82); RED CELL DISTRIBUTION WIDTH 13.1 % (9.4-14.8)
[2019-04-01 11:00] LABS: ALANINE AMINOTRANSFERASE 86 U/L (12-78); ALBUMIN 3.5 g/dL (3.4-5.0); ANION GAP 10 mmol/L (5-15); CALCIUM 8.5 mg/dL (8.5-10.1); CHLORIDE 105 mmol/L (98-107); CREATININE 0.86 mg/dL (0.7-1.3)
[2019-04-01 11:04] LABS: ALKALINE PHOSPHATASE 145 U/L (45-117); BILIRUBIN,TOTAL 1.7 mg/dL (0.2-1.0); TOTAL PROTEIN 7.9 g/dL (6.4-8.2); TROPONIN I < 0.015 ng/mL (0.000-0.045)
--- NOTE | 2019-04-01 12:02 | NUR ---
Hourly rounding on pt. Pt provided urine sample. NADN. Pt remains connected to internal audit consultant, NIBP, and continous pulse ox. No needs expressed at this time. Bedrails up for safety measures. Call light within reach.
[2019-04-01 12:30] LABS: MICROSCOPIC NOT IND
[2019-04-01 12:35] LABS: CULTURE INDICATED? NO
[2019-04-01 13:44] VITALS: BP 130/86
--- NOTE | 2019-04-01 13:44 | NUR ---
Hourly rounding of pt. Pt resting on gurney. Pt states, "I feel alright, hungry now, and a little nauseated." Pt has call light within reach. Both bedrails up for safety measures. NADN. No needs expressed at this time.
--- NOTE | 2019-04-01 14:36 | NUR ---
TASK RN: DC EDUCATION PROVIDED, PT DEMONSTRATES UNDERSTANDING. PT AMBULATED STEADILY TO DC WITH RN
== END 2019-04-01 14:38 | disposition home or self-care (01) ==
LOC: ED 13:18
DX: A08.4 Viral intestinal infection, unspecified (principal); K21.9 Gastro-esophageal reflux disease without esophagitis; I10 Essential (primary) hypertension; Z87.11 Personal history of peptic ulcer disease; Z87.19 Personal history of other diseases of the digestive system
CPT/HCPCS: 36415; 74021; 80053; 81003; 83690; 83880; 84484; 85025; 93005; 99284

== ENCOUNTER 2019-04-07 17:06 | Emergency (ER) | payer MEDICAID ==
[~2019-04-07] VITALS: Ht 167.6 cm; Wt 96.0 kg
[~2019-04-07 17:06] MED LIST changes: +DIAZ5TAB PO; +TRAM50TA2 PO
--- NOTE | 2019-04-07 17:15 | NUR ---
PT EXPERIENCING PALPITATIONS AND CP SINCE 0. BINGE DRINKING THRU NIGHT AND USED METH AT 0200. PAIN AND PALPITATIONS CONTINING THROUGH THE DAY
[2019-04-07] MEDS ORDERED: MAALOX/HYOSCYAMINE/LIDOCAINE 45 ML BTL PO ONE (17:30)
[2019-04-07 17:39] LABS: BASOPHILS # (AUTO) 0.03 x10^3/uL (0-0.1); BASOPHILS % (AUTO) 0 % (0-1); EOSINOPHILS # (AUTO) 0.06 x10^3/uL (0-0.4); EOSINOPHILS % (AUTO) 1 % (1-7); LYMPHOCYTES # (AUTO) 1.97 x10^3/uL (1-3.4); LYMPHOCYTES % (AUTO) 23 % (22-44); MD NO; MEAN CORPUSCULAR HGB CONC 34.5 g/dL (33.2-36.2); MEAN CORPUSCULAR VOLUME 101.5 fL (81-97); MEAN PLATELET VOLUME 6.8 fL (7.4-10.4); MONOCYTES # (AUTO) 0.64 x10^3/uL (0.2-0.8); MONOCYTES % (AUTO) 8 % (2-9); NEUTROPHILS # (AUTO) 5.81 x10^3/uL (1.8-6.8); NEUTROPHILS % (AUTO) 68 % (42-75); PLATELET COUNT 164 x10^3/uL (130-400); RED BLOOD COUNT 5.36 x10^6/uL (4.38-5.82); RED CELL DISTRIBUTION WIDTH 13.8 % (9.4-14.8)
[2019-04-07 17:50] LABS: ALBUMIN 3.9 g/dL (3.4-5.0); ANION GAP 9 mmol/L (5-15); CALCIUM 9.5 mg/dL (8.5-10.1); CHLORIDE 104 mmol/L (98-107)
[2019-04-07 17:55] LABS: CREATININE 0.95 mg/dL (0.7-1.3); TROPONIN I < 0.015 ng/mL (0.000-0.045)
[2019-04-07] MEDS ORDERED: MAALOX/HYOSCYAMINE/LIDOCAINE 45 ML BTL ONE (17:56)
--- NOTE | 2019-04-07 18:06 | NUR ---
REPEAT EKG BY TECH. MEDICATED PER ORDERS. CONTINUE TO MONITOR
[2019-04-07 18:52] VITALS: BP 116/65
--- NOTE | 2019-04-07 18:56 | NUR ---
NO CP OR PALPITATIONS AT THIS TIME AND STATES GI COCKTAIL MADE A DIFFERENCE. GIVEN DISCHARGE PAPERS AND PT TO DISCHARGE WINDOW, STEADY GAIT
== END 2019-04-07 18:59 | disposition home or self-care (01) ==
LOC: ED 17:58
DX: K21.9 Gastro-esophageal reflux disease without esophagitis (principal); I10 Essential (primary) hypertension; F17.200 Nicotine dependence, unspecified, uncomplicated
CPT/HCPCS: 36415; 71045; 80048; 82040; 84484; 85025; 93005; 99284

== ENCOUNTER 2019-04-27 15:08 | Emergency (ER) | payer MEDICAID ==
[~2019-04-27] VITALS: Ht 167.6 cm; Wt 90.0 kg
[2019-04-27] MEDS ORDERED: LORazepam 1MG TABLET ONE (15:52)
[2019-04-27] MEDS ORDERED: MAALOX/HYOSCYAMINE/LIDOCAINE 45 ML BTL ONE (15:53)
[2019-04-27 16:00] LABS: BASOPHILS # (AUTO) 0.02 x10^3/uL (0-0.1); BASOPHILS % (AUTO) 0 % (0-1); EOSINOPHILS # (AUTO) 0.04 x10^3/uL (0-0.4); EOSINOPHILS % (AUTO) 1 % (1-7); LYMPHOCYTES # (AUTO) 1.95 x10^3/uL (1-3.4); LYMPHOCYTES % (AUTO) 24 % (22-44); MD NO; MEAN CORPUSCULAR HEMOGLOBIN 34.3 pg (27.5-34.5); MEAN CORPUSCULAR HGB CONC 32.9 g/dL (33.2-36.2); MEAN CORPUSCULAR VOLUME 104.3 fL (81-97); MEAN PLATELET VOLUME 7.1 fL (7.4-10.4); MONOCYTES # (AUTO) 0.61 x10^3/uL (0.2-0.8); MONOCYTES % (AUTO) 7 % (2-9); NEUTROPHILS # (AUTO) 5.58 x10^3/uL (1.8-6.8); NEUTROPHILS % (AUTO) 68 % (42-75); PLATELET COUNT 137 x10^3/uL (130-400); RED BLOOD COUNT 5.47 x10^6/uL (4.38-5.82); RED CELL DISTRIBUTION WIDTH 13.4 % (9.4-14.8)
[2019-04-27] MEDS ORDERED: MAALOX/HYOSCYAMINE/LIDOCAINE 45 ML BTL PO ONE (16:00)
[2019-04-27] MEDS ORDERED: LORazepam 1MG TABLET PO ONE (16:00)
[2019-04-27 16:08] LABS: ALANINE AMINOTRANSFERASE 64 U/L (12-78); ANION GAP 11 mmol/L (5-15); CALCIUM 9.3 mg/dL (8.5-10.1); CHLORIDE 103 mmol/L (98-107); CREATININE 0.99 mg/dL (0.7-1.3)
[2019-04-27 16:12] LABS: ALKALINE PHOSPHATASE 180 U/L (45-117); BILIRUBIN,TOTAL 1.7 mg/dL (0.2-1.0); TOTAL PROTEIN 8.9 g/dL (6.4-8.2); TROPONIN I < 0.015 ng/mL (0.000-0.045)
--- NOTE | 2019-04-27 16:48 | NUR ---
Patient given discharge instructions and they have confirmed that they understand the instructions. Patient ambulatory with steady gait. Pt left with all personal belongings and d/c paperwork.
[2019-04-27 16:49] VITALS: BP 146/95
== END 2019-04-27 16:51 | disposition home or self-care (01) ==
LOC: ED 16:18
DX: K29.00 Acute gastritis without bleeding (principal); F41.1 Generalized anxiety disorder; R07.89 Other chest pain; F15.10 Other stimulant abuse, uncomplicated; I10 Essential (primary) hypertension; K21.9 Gastro-esophageal reflux disease without esophagitis; Z72.9 Problem related to lifestyle, unspecified
CPT/HCPCS: 36415; 71045; 80053; 83690; 84484; 85025; 93005; 99284

== ENCOUNTER 2019-06-29 13:37 | Emergency (ER) | payer MEDICAID ==
[~2019-06-29] VITALS: Ht 167.6 cm; Wt 90.0 kg
[~2019-06-29 13:37] MED LIST changes: +RANI-467 PO; -RANI150T23 PO
--- NOTE | 2019-06-29 13:44 | NUR ---
THIS IS A 44 YEAR OLD MALE WHO WAS BIB BY AMBULANCE DUE TO RIGHT LOWER LEG PAIN. PT STATES HE HAD LIGAMENT SURGERY X 5 DAYS AGO, BUT HELPED HIS MOTHER MOVE AND HAS RIGHT LEG PAIN. UNWRAPPED, DRESSING WET, (PT STATES HE SWAM), SUTURES INTACT, NO REDNESS OR SWELLING NOTED
[2019-06-29 13:45] VITALS: BP 154/108
[2019-06-29] MEDS ORDERED: OXYcodone/APAP 5/325MG TABLET ONE (13:49)
--- NOTE | 2019-06-29 13:56 | NUR ---
ELIANE WRAPPED LOWER LEG. Patient/Caregiver given discharge instructions and they have confirmed that they understand the instructions. Patient ambulatory with steady gait.
[2019-06-29] MEDS ORDERED: OXYcodone/APAP 5/325MG TABLET PO ONE (14:00)
== END 2019-06-29 14:16 | disposition home or self-care (01) ==
LOC: ED 13:44
DX: G89.18 Other acute postprocedural pain (principal); M79.671 Pain in right foot; I10 Essential (primary) hypertension; K21.9 Gastro-esophageal reflux disease without esophagitis; F41.1 Generalized anxiety disorder; F17.200 Nicotine dependence, unspecified, uncomplicated
CPT/HCPCS: 99283

== ENCOUNTER 2019-09-20 05:50 | Emergency (ER) | payer MEDICAID ==
[~2019-09-20] VITALS: Ht 167.6 cm; Wt 94.7 kg
[2019-09-20] MEDS ORDERED: FAMO-79 PO (06:11)
[2019-09-20] MEDS ORDERED: DICYCLOMINE 10 MG/ML, 2ML ONE (06:22)
[2019-09-20] MEDS ORDERED: ONDANSETRON ODT 4 MG ONE (06:22)
[2019-09-20] MEDS ORDERED: MAALOX/HYOSCYAMINE/LIDOCAINE 45 ML BTL ONE (06:22)
[2019-09-20] MEDS ORDERED: FAMOTIDINE 20 MG TABLET ONE (06:22)
[2019-09-20] MEDS ORDERED: MAALOX/HYOSCYAMINE/LIDOCAINE 45 ML BTL PO ONE (06:30)
[2019-09-20] MEDS ORDERED: FAMOTIDINE 20 MG TABLET PO ONE (06:30)
[2019-09-20] MEDS ORDERED: DICYCLOMINE 10 MG/ML, 2ML IM ONE (06:30)
[2019-09-20] MEDS ORDERED: ONDANSETRON ODT 4 MG PO ONE (06:30)
--- NOTE | 2019-09-20 06:31 | NUR ---
pt medicated per jan. poc discussed. pt aware a ua is needed. pt states he just used the restroom. pt given urinal. pt denies further needs at this time. call light on lap.
--- NOTE | 2019-09-20 06:48 | NUR ---
SBAR HAND-OFF REPORT RECEIVED FROM AUGUST PALUMBO. ASSUMING CARE OF PATIENT.
[2019-09-20 07:08] LABS: ALANINE AMINOTRANSFERASE 48 U/L (12-78); ALBUMIN 2.9 g/dL (3.4-5.0); ANION GAP 8 mmol/L (5-15); CALCIUM 8.5 mg/dL (8.5-10.1); CHLORIDE 106 mmol/L (98-107); CREATININE 0.88 mg/dL (0.7-1.3)
[2019-09-20 07:10] LABS: ALKALINE PHOSPHATASE 225 U/L (45-117); BILIRUBIN,TOTAL 0.9 mg/dL (0.2-1.0); TOTAL PROTEIN 7.4 g/dL (6.4-8.2)
[2019-09-20 07:16] LABS: BASOPHILS # (AUTO) 0.01 x10^3/uL (0-0.1); BASOPHILS % (AUTO) 0 % (0-1); EOSINOPHILS # (AUTO) 0.09 x10^3/uL (0-0.4); EOSINOPHILS % (AUTO) 3 % (1-7); LYMPHOCYTES # (AUTO) 0.72 x10^3/uL (1-3.4); LYMPHOCYTES % (AUTO) 19 % (22-44); MD SCAN; MEAN CORPUSCULAR HEMOGLOBIN 35.7 pg (27.5-34.5); MEAN CORPUSCULAR HGB CONC 34.2 g/dL (33.2-36.2); MEAN CORPUSCULAR VOLUME 104.3 fL (81-97); MEAN PLATELET VOLUME 7.1 fL (7.4-10.4); MONOCYTES # (AUTO) 0.51 x10^3/uL (0.2-0.8); MONOCYTES % (AUTO) 13 % (2-9); NEUTROPHILS # (AUTO) 2.52 x10^3/uL (1.8-6.8); NEUTROPHILS % (AUTO) 65 % (42-75); PLATELET COUNT 77 x10^3/uL (130-400); RED BLOOD COUNT 4.66 x10^6/uL (4.38-5.82)
[2019-09-20 07:17] VITALS: BP 135/86
--- NOTE | 2019-09-20 07:19 | NUR ---
VS UPDATED AND WNL. URINE COLLECTED AND SENT TO LAB. PT REPORTS IMPROVEMENT OF NAUSEA AND ABD CRAMPING AFTER MEDICATIONS. PT RESTING WITH NO COMPLAINTS.
[2019-09-20 07:33] LABS: MICROSCOPIC NOT IND
[2019-09-20 07:37] LABS: CULTURE INDICATED? NO
== END 2019-09-20 07:43 | disposition home or self-care (01) ==
LOC: ED 07:21
DX: R10.84 Generalized abdominal pain (principal); F17.200 Nicotine dependence, unspecified, uncomplicated; K21.9 Gastro-esophageal reflux disease without esophagitis; I10 Essential (primary) hypertension
CPT/HCPCS: 36415; 80053; 81003; 83690; 85025; 93005; 96372; 99284; J0500; Q0162

== ENCOUNTER 2019-10-06 00:26 | Emergency (ER) | payer MEDICAID ==
[~2019-10-06] VITALS: Ht 170.2 cm; Wt 92.0 kg
[2019-10-06] MEDS ORDERED: LORazepam 1MG TABLET ONE (00:44)
[2019-10-06 00:51] LABS: BASOPHILS # (AUTO) 0.05 x10^3/uL (0-0.1); BASOPHILS % (AUTO) 1 % (0-1); EOSINOPHILS # (AUTO) 0.05 x10^3/uL (0-0.4); EOSINOPHILS % (AUTO) 1 % (1-7); LYMPHOCYTES # (AUTO) 1.51 x10^3/uL (1-3.4); LYMPHOCYTES % (AUTO) 20 % (22-44); MD NO; MEAN CORPUSCULAR HGB CONC 33.9 g/dL (33.2-36.2); MEAN PLATELET VOLUME 7.5 fL (7.4-10.4); MONOCYTES # (AUTO) 0.76 x10^3/uL (0.2-0.8); MONOCYTES % (AUTO) 10 % (2-9); NEUTROPHILS # (AUTO) 5.05 x10^3/uL (1.8-6.8); NEUTROPHILS % (AUTO) 68 % (42-75); PLATELET COUNT 111 x10^3/uL (130-400); RED BLOOD COUNT 5.01 x10^6/uL (4.38-5.82)
--- NOTE | 2019-10-06 00:57 | NUR ---
INITIAL CONTACT WITH PT. MED GIVEN CHARTED, 5 RIGHTS VERIFIED. XRAY AND LABS HAVE BEEN DONE, RESULTS PENDING. ASSESSMENT COMPLETED.
[2019-10-06] MEDS ORDERED: LORazepam 1MG TABLET PO ONE (01:00)
[2019-10-06 01:01] LABS: ALANINE AMINOTRANSFERASE 70 U/L (12-78); ALBUMIN 3.4 g/dL (3.4-5.0); ANION GAP 9 mmol/L (5-15); CALCIUM 9.5 mg/dL (8.5-10.1); CHLORIDE 103 mmol/L (98-107); CREATININE 0.96 mg/dL (0.7-1.3)
[2019-10-06] MEDS ORDERED: POLY17PO5 PO (01:03)
[2019-10-06 01:05] LABS: ALKALINE PHOSPHATASE 177 U/L (45-117); BILIRUBIN,TOTAL 2.4 mg/dL (0.2-1.0); TOTAL PROTEIN 8.8 g/dL (6.4-8.2); TROPONIN I < 0.015 ng/mL (0.000-0.045)
[2019-10-06 01:32] LABS: AMPHETAMINE SCREEN, URINE Positive (Negative); BARBITURATE SCREEN, URINE Negative (Negative); BENZODIAZEPINE SCREEN, URINE Positive (Negative); CANNABINOID SCREEN, URINE Negative (Negative); COCAINE SCREEN, URINE Negative (Negative); METHADONE SCREEN, URINE Negative (Negative); OPIATE SCREEN, URINE Negative (Negative)
--- NOTE | 2019-10-06 02:06 | NUR ---
PT DC'D HOME WITH UNDERSTANDING OF INSTRUCTIONS. PT TO DC DESK, GAIT STEADY.
[2019-10-06 02:07] VITALS: BP 127/85
== END 2019-10-06 02:09 | disposition home or self-care (01) ==
LOC: ED 02:07
DX: R07.89 Other chest pain (principal); F15.10 Other stimulant abuse, uncomplicated; K21.9 Gastro-esophageal reflux disease without esophagitis; I10 Essential (primary) hypertension
CPT/HCPCS: 36415; 71046; 80053; 80307; 84484; 85025; 93005; 99284

== ENCOUNTER 2019-12-28 17:27 | Emergency (ER) | payer MEDICAID ==
[~2019-12-28] VITALS: Ht 167.6 cm; Wt 89.5 kg
[2019-12-28 17:52] LABS: MICROSCOPIC INDICATED
[2019-12-28 18:01] LABS: CULTURE INDICATED? NO
[2019-12-28 18:07] LABS: BASOPHILS # (AUTO) 0.01 x10^3/uL (0-0.1); BASOPHILS % (AUTO) 0 % (0-1); EOSINOPHILS # (AUTO) 0.09 x10^3/uL (0-0.4); EOSINOPHILS % (AUTO) 1 % (1-7); LYMPHOCYTES # (AUTO) 1.48 x10^3/uL (1-3.4); LYMPHOCYTES % (AUTO) 18 % (22-44); MD NO; MEAN CORPUSCULAR HEMOGLOBIN 35.3 pg (27.5-34.5); MEAN CORPUSCULAR HGB CONC 34.2 g/dL (33.2-36.2); MEAN CORPUSCULAR VOLUME 103.3 fL (81-97); MEAN PLATELET VOLUME 7.1 fL (7.4-10.4); MONOCYTES # (AUTO) 0.64 x10^3/uL (0.2-0.8); MONOCYTES % (AUTO) 8 % (2-9); NEUTROPHILS # (AUTO) 5.93 x10^3/uL (1.8-6.8); NEUTROPHILS % (AUTO) 73 % (42-75); PLATELET COUNT 116 x10^3/uL (130-400); RED BLOOD COUNT 5.26 x10^6/uL (4.38-5.82); RED CELL DISTRIBUTION WIDTH 14.5 % (9.4-14.8)
[2019-12-28 18:19] LABS: ALANINE AMINOTRANSFERASE 66 U/L (12-78); ALBUMIN 3.4 g/dL (3.4-5.0); ANION GAP 7 mmol/L (5-15); CALCIUM 9.3 mg/dL (8.5-10.1); CHLORIDE 103 mmol/L (98-107); CREATININE 0.92 mg/dL (0.7-1.3)
[2019-12-28 18:21] LABS: ALKALINE PHOSPHATASE 196 U/L (45-117); BILIRUBIN,TOTAL 1.8 mg/dL (0.2-1.0); TOTAL PROTEIN 8.8 g/dL (6.4-8.2)
--- NOTE | 2019-12-28 18:36 | NUR ---
ALL RESULTS ARE BACK AT THIS TIME. CHART UP FOR RECHECK.
--- NOTE | 2019-12-28 18:38 | NUR ---
PT RESTING COMFORTABLY ON GURNEY. KRISTIAN.
--- NOTE | 2019-12-28 18:49 | NUR ---
REPORT GIVEN TO ADITYA Zambrano RN.
--- NOTE | 2019-12-28 18:50 | NUR ---
REPORT RECEIVED FROM AUGUST GARCIA, PLAN OF CARE DISCUSSED.
--- NOTE | 2019-12-28 20:00 | NUR ---
PATIENT RESTING ON GURNEY, C/O EPIGASTRIC PAIN. MD NOTIFIED. VSS, NAD, CALL LIGHT IN REACH
--- NOTE | 2019-12-28 20:26 | NUR ---
PATIENT TO ULTRASOUND
--- NOTE | 2019-12-28 20:45 | NUR ---
PATIENT BACK FROM
[2019-12-28 21:37] VITALS: BP 162/104
--- NOTE | 2019-12-28 21:38 | NUR ---
MD TO ROOM, PATIENT TBDC. PIV REMOVED WITH CATHETER INTACT. VSS, NAD NOTED, PATIENT VERBALIZED UNDERSTANDING
== END 2019-12-28 21:47 | disposition home or self-care (01) ==
LOC: ED 17:33
DX: K85.90 Acute pancreatitis without necrosis or infection, unspecified (principal); E80.7 Disorder of bilirubin metabolism, unspecified; R74.8 Abnormal levels of other serum enzymes; I10 Essential (primary) hypertension; F17.200 Nicotine dependence, unspecified, uncomplicated; K21.9 Gastro-esophageal reflux disease without esophagitis; Z87.11 Personal history of peptic ulcer disease; Z72.9 Problem related to lifestyle, unspecified; Z87.19 Personal history of other diseases of the digestive system
CPT/HCPCS: 36415; 74021; 76700; 80053; 81001; 83690; 85025; 99284

== ENCOUNTER 2020-01-11 22:29 | Emergency (ER) | payer MEDICAID ==
[~2020-01-11] VITALS: Ht 167.6 cm; Wt 88.8 kg
--- NOTE | 2020-01-12 00:30 | NUR ---
PT TO ROOM FROM LOBBY
[2020-01-12] MEDS ORDERED: DIAZEPAM 5 MG TABLET PO ONE (01:00)
[2020-01-12] MEDS ORDERED: ACETAMINOPHEN 325 MG TABLET PO ONE (01:00)
[2020-01-12] MEDS ORDERED: DIAZ5TAB PO (01:08)
[2020-01-12] MEDS ORDERED: ACETAMINOPHEN 325 MG TABLET ONE (01:13)
[2020-01-12] MEDS ORDERED: DIAZEPAM 5 MG TABLET ONE (01:13)
--- NOTE | 2020-01-12 01:17 | NUR ---
PT COMPLAINING BACK PAIN SINCE HE WAS 18, ALSO COMPLAINING R KNEE PAIN. STATES THAT HE IS GOING TO HAVE SURGERY ON BOTH OF THESE "NEXT MONTH". PT ALSO STATES THAT HE IS HAVING CHEST PAIN AND IT FEELS "GASSY", PAIN IS INTERMITTENT. "I HAVE GI PROBLEMS AND I DRANK ON ". WALKED TO ER FROM BUS STATION VSS, NAD NOTED, CALL LIGHT IN REACH PATIENT MEDICATED PER EMAR, TOLERATED WELL.
[2020-01-12 01:19] VITALS: BP 133/97
== END 2020-01-12 01:52 | disposition home or self-care (01) ==
LOC: ED 01-12 00:58
DX: S29.012A Strain of muscle and tendon of back wall of thorax, initial encounter (principal); M25.562 Pain in left knee; I10 Essential (primary) hypertension; X58.XXXA Exposure to other specified factors, initial encounter; Y93.89 Activity, other specified; Y92.89 Other specified places as the place of occurrence of the external cause; Y99.8 Other external cause status
CPT/HCPCS: 93005; 99283

== ENCOUNTER 2020-02-15 18:22 | Emergency (ER) | payer MEDICAID ==
[2020-02-15 18:26] VITALS: BP 147/104
--- NOTE | 2020-02-15 18:33 | NUR ---
THIS IS A 44 YO M BIB EMS W/ C/O INTERMITTENT PALPITATIONS AND SOB THAT STARTED TODAY AFTER TAKING HIS BP MEDICATION. PT REPORTS TAKING LISINOPRIL AND METOPROLOL. PT REPORTS TAKING A "METH CAPSULE" THAT IS MIXED WITH VITAMIN B12 AND "CROSSTOP". PT ALSO REPORTS TAKING ATIVAN TODAY AFTER HAVING A PANIC ATTACK. PT REPORTS HANDS HAVE BEEN CRAMPING UP TODAY. HX: HTN AND RECENT LT KNEE SX. PT IS TACHYCARDIC. OTHER VS WDL. NADN. RESTING ON GURNEY W/ CALL LIGHT IN REACH. AT BEDSIDE FOR ED EVAL. AWAITING ORDERS.
[2020-02-15] MEDS ORDERED: METOPROLOL (19:06)
[2020-02-15 19:12] LABS: BASOPHILS # (AUTO) 0.02 x10^3/uL (0-0.1); BASOPHILS % (AUTO) 0 % (0-1); EOSINOPHILS # (AUTO) 0.07 x10^3/uL (0-0.4); EOSINOPHILS % (AUTO) 1 % (1-7); LYMPHOCYTES # (AUTO) 1.88 x10^3/uL (1-3.4); LYMPHOCYTES % (AUTO) 20 % (22-44); MD NO; MEAN CORPUSCULAR HEMOGLOBIN 35.7 pg (27.5-34.5); MEAN CORPUSCULAR HGB CONC 34.2 g/dL (33.2-36.2); MEAN CORPUSCULAR VOLUME 104.5 fL (81-97); MEAN PLATELET VOLUME 6.9 fL (7.4-10.4); MONOCYTES # (AUTO) 0.71 x10^3/uL (0.2-0.8); MONOCYTES % (AUTO) 8 % (2-9); NEUTROPHILS # (AUTO) 6.55 x10^3/uL (1.8-6.8); NEUTROPHILS % (AUTO) 71 % (42-75); PLATELET COUNT 111 x10^3/uL (130-400); RED BLOOD COUNT 4.89 x10^6/uL (4.38-5.82); RED CELL DISTRIBUTION WIDTH 15.1 % (9.4-14.8)
[2020-02-15 19:21] LABS: ALBUMIN 3.3 g/dL (3.4-5.0); ANION GAP 8 mmol/L (5-15); CALCIUM 9.2 mg/dL (8.5-10.1); CHLORIDE 103 mmol/L (98-107)
[2020-02-15 19:27] LABS: CREATININE 0.79 mg/dL (0.7-1.3); TROPONIN I < 0.015 ng/mL (0.000-0.045)
--- NOTE | 2020-02-15 19:56 | NUR ---
task rn Patient/Caregiver given discharge instructions and they have confirmed that they understand the instructions. Patient ambulatory with steady gait.
== END 2020-02-15 20:04 | disposition home or self-care (01) ==
LOC: ED 19:59
DX: R00.2 Palpitations (principal); K21.9 Gastro-esophageal reflux disease without esophagitis; I10 Essential (primary) hypertension; F15.10 Other stimulant abuse, uncomplicated
CPT/HCPCS: 36415; 71045; 80048; 82040; 84484; 85025; 93005; 99285

== ENCOUNTER 2020-05-11 06:10 | Emergency (ER) | payer MEDICAID ==
[~2020-05-11] VITALS: Ht 167.6 cm; Wt 94.4 kg
[~2020-05-11 06:10] MED LIST changes: +METOPROLOL
[2020-05-11] MEDS ORDERED: MAALOX/HYOSCYAMINE/LIDOCAINE 45 ML BTL PO ONE (06:30)
[2020-05-11] MEDS ORDERED: LORazepam 2 MG/ML, 1ML IVPush ONE (06:30)
[2020-05-11] MEDS ORDERED: SODIUM CHLORIDE 0.9% 1,000ML IVBOLUS ONE (06:30)
--- NOTE | 2020-05-11 06:41 | NUR ---
PT TO ED WITH C/O CHEST PAIN THAT STARTED AROUND 0200 THIS MORNING. REPORTS THIS WOKE HIM UP. REPORTS THAT IT STARTS IN ABDOMEN AND TRAVELS UP TO HIS CHEST. REPORTS SOME NAUSEA. NO VOMITING. REPORTS ANXIETY. REPORTS FEELING DEHYDRATED. WAS IN [place] FOR SEVERAL DAYS IN THE HOT WEATH[place] AND DRANK A LOT OF BEERS.
[2020-05-11] MEDS ORDERED: FAMO-79 PO (06:43)
[2020-05-11 07:12] LABS: MEAN CORPUSCULAR HEMOGLOBIN 35.2 pg (27.5-34.5); MEAN CORPUSCULAR HGB CONC 34.2 g/dL (33.2-36.2); MEAN PLATELET VOLUME 7.5 fL (7.4-10.4); PLATELET COUNT 87 x10^3/uL (130-400); RED BLOOD COUNT 4.85 x10^6/uL (4.38-5.82)
--- NOTE | 2020-05-11 07:12 | NUR ---
REPORT RECEIVED FROM INGRIS KOCH.
[2020-05-11 07:17] LABS: ALBUMIN 3.4 g/dL (3.4-5.0); ANION GAP 9 mmol/L (5-15); CALCIUM 9.1 mg/dL (8.5-10.1); CHLORIDE 103 mmol/L (98-107)
[2020-05-11 07:23] LABS: ALANINE AMINOTRANSFERASE 41 U/L (12-78); ALKALINE PHOSPHATASE 203 U/L (45-117); BILIRUBIN,TOTAL 3.4 mg/dL (0.2-1.0); CREATININE 0.82 mg/dL (0.7-1.3); TOTAL PROTEIN 8.4 g/dL (6.4-8.2); TROPONIN I < 0.015 ng/mL (0.000-0.045)
[2020-05-11] MEDS ORDERED: LORazepam 2 MG/ML, 1ML ONE (07:26)
[2020-05-11] MEDS ORDERED: MAALOX/HYOSCYAMINE/LIDOCAINE 45 ML BTL ONE (07:26)
--- NOTE | 2020-05-11 07:43 | NUR ---
PT MEDICATED PER EMAR. NS INFUSING AT THIS TIME. PT TOLERATED WELL.
[2020-05-11 07:45] LABS: BASOPHILS # (AUTO) 0.02 x10^3/uL (0-0.1); BASOPHILS % (AUTO) 0 % (0-1); EOSINOPHILS # (AUTO) 0.05 x10^3/uL (0-0.4); EOSINOPHILS % (AUTO) 1 % (1-7); LYMPHOCYTES % (AUTO) 21 % (22-44); MD SCAN; MONOCYTES # (AUTO) 0.73 x10^3/uL (0.2-0.8); MONOCYTES % (AUTO) 11 % (2-9); NEUTROPHILS # (AUTO) 4.54 x10^3/uL (1.8-6.8); NEUTROPHILS % (AUTO) 67 % (42-75)
[2020-05-11 08:32] VITALS: BP 166/99
--- NOTE | 2020-05-11 08:34 | NUR ---
Patient given discharge instructions and they have confirmed that they understand the instructions. Patient ambulatory with steady gait.
== END 2020-05-11 08:35 | disposition home or self-care (01) ==
LOC: ED 07:15
DX: K29.50 Unspecified chronic gastritis without bleeding (principal); R07.9 Chest pain, unspecified; F41.1 Generalized anxiety disorder; R00.0 Tachycardia, unspecified; K21.9 Gastro-esophageal reflux disease without esophagitis; I10 Essential (primary) hypertension
CPT/HCPCS: 36415; 71045; 80053; 83690; 84484; 85025; 93005; 96361; 96374; 99285; J2060; J7030

== ENCOUNTER 2020-08-15 22:30 | Emergency (ER) | payer MEDICAID ==
[~2020-08-15] VITALS: Ht 167.6 cm; Wt 95.0 kg
[2020-08-15 22:58] LABS: MEAN CORPUSCULAR HEMOGLOBIN 35.6 pg (27.5-34.5); MEAN CORPUSCULAR HGB CONC 33.7 g/dL (33.2-36.2); MEAN CORPUSCULAR VOLUME 105.7 fL (81-97); RED BLOOD COUNT 4.64 x10^6/uL (4.38-5.82); RED CELL DISTRIBUTION WIDTH 15.8 % (9.4-14.8)
[2020-08-15] MEDS ORDERED: MAALOX/HYOSCYAMINE/LIDOCAINE 45 ML BTL PO ONE (23:00)
[2020-08-15 23:06] LABS: ALANINE AMINOTRANSFERASE 45 U/L (12-78); ALBUMIN 2.8 g/dL (3.4-5.0); ANION GAP 6 mmol/L (5-15); CALCIUM 8.9 mg/dL (8.5-10.1); CHLORIDE 103 mmol/L (98-107); CREATININE 0.88 mg/dL (0.7-1.3)
[2020-08-15] MEDS ORDERED: MAALOX/HYOSCYAMINE/LIDOCAINE 45 ML BTL ONE (23:08)
[2020-08-15 23:11] LABS: ALKALINE PHOSPHATASE 198 U/L (45-117); TOTAL PROTEIN 9.3 g/dL (6.4-8.2); TROPONIN I < 0.015 ng/mL (0.000-0.045)
[2020-08-15 23:13] LABS: BILIRUBIN,TOTAL 4.4 mg/dL (0.2-1.0)
[2020-08-15 23:29] LABS: BASOPHILS # (AUTO) 0.06 x10^3/uL (0-0.1); BASOPHILS % (AUTO) 1 % (0-1); EOSINOPHILS # (AUTO) 0.09 x10^3/uL (0-0.4); EOSINOPHILS % (AUTO) 1 % (1-7); LYMPHOCYTES # (AUTO) 1.76 x10^3/uL (1-3.4); LYMPHOCYTES % (AUTO) 27 % (22-44); MD SCAN; MEAN PLATELET VOLUME 6.9 fL (7.4-10.4); MONOCYTES # (AUTO) 0.79 x10^3/uL (0.2-0.8); MONOCYTES % (AUTO) 12 % (2-9); NEUTROPHILS # (AUTO) 3.95 x10^3/uL (1.8-6.8); NEUTROPHILS % (AUTO) 59 % (42-75); PLATELET COUNT 98 x10^3/uL (130-400)
[2020-08-16 00:07] VITALS: BP 135/80
== END 2020-08-16 00:20 | disposition home or self-care (01) ==
LOC: ED 08-16
DX: K21.9 Gastro-esophageal reflux disease without esophagitis (principal); R07.89 Other chest pain; I10 Essential (primary) hypertension
CPT/HCPCS: 36415; 71045; 80053; 83690; 84484; 85025; 93005; 99285

== ENCOUNTER 2020-09-29 04:36 | Emergency (ER) | payer MEDICAID ==
[~2020-09-29] VITALS: Ht 167.6 cm; Wt 92.5 kg
[~2020-09-29 04:36] MED LIST changes: +AMLO-211 PO; -AMLO10TA8 PO
[2020-09-29] MEDS ORDERED: MORPHINE SULFATE 4 MG/ML, 1ML ONE (05:08)
[2020-09-29] MEDS ORDERED: ONDANSETRON 2MG/ML, 2ML ONE (05:08)
[2020-09-29] MEDS ORDERED: SODIUM CHLORIDE FLUSH 10ML SYR IVF ONE (05:30)
[2020-09-29] MEDS ORDERED: MORPHINE SULFATE 4 MG/ML, 1ML IVPush PRN (05:30)
[2020-09-29] MEDS ORDERED: ONDANSETRON 2MG/ML, 2ML IVPush ONE (05:30)
[2020-09-29 05:32] LABS: BASOPHILS % (AUTO) 2 % (0-1); EOSINOPHILS % (AUTO) 3 % (1-7); LYMPHOCYTES % (AUTO) 26 % (22-44); MEAN CORPUSCULAR HEMOGLOBIN 36.5 pg (27.5-34.5); MEAN CORPUSCULAR HGB CONC 34.7 g/dL (33.2-36.2); MONOCYTES % (AUTO) 13 % (2-9); NEUTROPHILS % (AUTO) 56 % (42-75); PLATELET COUNT 78 x10^3/uL (130-400); RED BLOOD COUNT 3.98 x10^6/uL (4.38-5.82); RED CELL DISTRIBUTION WIDTH 14.2 % (9.4-14.8)
[2020-09-29 05:40] LABS: MD NO
[2020-09-29 05:45] LABS: ALANINE AMINOTRANSFERASE 38 U/L (12-78); ALBUMIN 2.6 g/dL (3.4-5.0); ANION GAP 6 mmol/L (5-15); CALCIUM 8.5 mg/dL (8.5-10.1); CHLORIDE 105 mmol/L (98-107); CREATININE 0.85 mg/dL (0.7-1.3)
[2020-09-29 05:48] LABS: ALKALINE PHOSPHATASE 329 U/L (45-117); BILIRUBIN,TOTAL 1.7 mg/dL (0.2-1.0); TOTAL PROTEIN 8.2 g/dL (6.4-8.2)
[2020-09-29 06:50] VITALS: BP 139/64
== END 2020-09-29 06:58 | disposition home or self-care (01) ==
LOC: ED 06:23
DX: K70.30 Alcoholic cirrhosis of liver without ascites (principal); K59.00 Constipation, unspecified; R10.12 Left upper quadrant pain; R11.0 Nausea; I10 Essential (primary) hypertension; K21.9 Gastro-esophageal reflux disease without esophagitis
CPT/HCPCS: 36415; 74022; 80053; 83690; 85025; 93005; 96374; 96375; 99285; J2270; J2405

== ENCOUNTER 2020-10-24 02:34 | Emergency (ER) | payer MEDICAID ==
[~2020-10-24] VITALS: Ht 167.6 cm; Wt 93.0 kg
--- NOTE | 2020-10-24 02:50 | NUR ---
PT CAME INTO ED TONIGHT DUE TO WAKING UP AND FEELING EXTREMELY ANXIOUS. PT ALSO REPORTS SOME NAUSEA AND DRY HEAVING. PT SITTING UP IN GURNEY, DENIES ISSUES AND DENIES DIARRHEA, STATES HE HASNT THROWN UP BUT HAS DRY HEAVED. NAD, APPEARS COMFORTABLE, WCTM. PT PLACED ON SPO2/BP MONITORING.
[2020-10-24] MEDS ORDERED: ONDANSETRON 2MG/ML, 2ML ONE (03:29)
[2020-10-24] MEDS ORDERED: ONDANSETRON 2MG/ML, 2ML IVPush ONE (03:30)
[2020-10-24] MEDS ORDERED: LORazepam 2 MG/ML, 1ML IVPush ONE (03:30)
[2020-10-24] MEDS ORDERED: LORazepam 2 MG/ML, 1ML ONE (03:30)
--- NOTE | 2020-10-24 03:42 | NUR ---
PT MEDICATED PER JAN, PROVIDED WARM BLANKET FOR COMFORT, APPEARS CALM AND RELAXED AT THIS TIME. NAD, RESTING ON GURNEY, BED IN LOWEST. CALL LIGHT ON LAP, WCTM. WAITING FOR LAB RESULTS
[2020-10-24 03:55] LABS: BASOPHILS % (AUTO) 1 % (0-1); EOSINOPHILS % (AUTO) 2 % (1-7); LYMPHOCYTES % (AUTO) 25 % (22-44); MEAN CORPUSCULAR HEMOGLOBIN 36.9 pg (27.5-34.5); MEAN CORPUSCULAR HGB CONC 35.3 g/dL (33.2-36.2); MEAN PLATELET VOLUME 7.1 fL (7.4-10.4); MONOCYTES % (AUTO) 16 % (2-9); NEUTROPHILS % (AUTO) 57 % (42-75); PLATELET COUNT 60 x10^3/uL (130-400); RED CELL DISTRIBUTION WIDTH 14.2 % (9.4-14.8)
[2020-10-24 03:56] LABS: MD NO
[2020-10-24] MEDS ORDERED: SODIUM CHLORIDE 0.9%, 500ML IVBOLUS ONE (04:00)
[2020-10-24 04:03] LABS: ALANINE AMINOTRANSFERASE 35 U/L (12-78); ALBUMIN 2.6 g/dL (3.4-5.0); ANION GAP 6 mmol/L (5-15); CALCIUM 8.5 mg/dL (8.5-10.1); CHLORIDE 108 mmol/L (98-107); CREATININE 0.83 mg/dL (0.7-1.3)
[2020-10-24 04:05] LABS: ALKALINE PHOSPHATASE 303 U/L (45-117); BILIRUBIN,TOTAL 2.2 mg/dL (0.2-1.0); TOTAL PROTEIN 7.8 g/dL (6.4-8.2)
[2020-10-24] MEDS ORDERED: MAALOX/HYOSCYAMINE/LIDOCAINE 45 ML BTL ONE (04:07)
[2020-10-24] MEDS ORDERED: MAALOX/HYOSCYAMINE/LIDOCAINE 45 ML BTL PO ONE (04:30)
--- NOTE | 2020-10-24 04:30 | NUR ---
Patient given discharge instructions and they have confirmed that they understand the instructions. Patient ambulatory with steady gait. nad, denies additional questions or needs at this time. states he is feeling a bit better. no personal belongings left in room after dc
[2020-10-24 04:31] VITALS: BP 126/70
== END 2020-10-24 04:45 | disposition home or self-care (01) ==
LOC: ED 02:54
DX: K70.30 Alcoholic cirrhosis of liver without ascites (principal); F41.1 Generalized anxiety disorder; R11.2 Nausea with vomiting, unspecified; F17.210 Nicotine dependence, cigarettes, uncomplicated; I10 Essential (primary) hypertension; Z90.49 Acquired absence of other specified parts of digestive tract
CPT/HCPCS: 36415; 80053; 80320; 83690; 85025; 96374; 96375; 99284; J2060; J2405; J7040; G0480

== ENCOUNTER 2020-11-01 06:13 | Emergency (ER) | payer MEDICAID ==
[~2020-11-01] VITALS: Ht 167.6 cm; Wt 90.5 kg
--- NOTE | 2020-11-01 06:32 | NUR ---
Pt not in room, jacket on chair.
--- NOTE | 2020-11-01 07:00 | NUR ---
PT HAS MULTIPLE CO ABDOMINAL PAIN, NAUSEA. DENIES CP. SOB. NOT IN DISTRESS. HX OF CIRRHOSIS.
[2020-11-01 07:28] LABS: BASOPHILS % (AUTO) 1 % (0-1); EOSINOPHILS % (AUTO) 1 % (1-7); LYMPHOCYTES % (AUTO) 26 % (22-44); MEAN CORPUSCULAR HEMOGLOBIN 37.2 pg (27.5-34.5); MEAN CORPUSCULAR HGB CONC 35.1 g/dL (33.2-36.2); MONOCYTES % (AUTO) 15 % (2-9); NEUTROPHILS % (AUTO) 56 % (42-75); PLATELET COUNT 71 x10^3/uL (130-400); RED CELL DISTRIBUTION WIDTH 14.8 % (9.4-14.8)
[2020-11-01 07:46] LABS: ALANINE AMINOTRANSFERASE 40 U/L (12-78); ALBUMIN 2.8 g/dL (3.4-5.0); ANION GAP 7 mmol/L (5-15); CALCIUM 8.6 mg/dL (8.5-10.1); CHLORIDE 104 mmol/L (98-107); CREATININE 0.66 mg/dL (0.7-1.3)
[2020-11-01 07:48] LABS: ALKALINE PHOSPHATASE 230 U/L (45-117); BILIRUBIN,TOTAL 4.8 mg/dL (0.2-1.0); TOTAL PROTEIN 8.2 g/dL (6.4-8.2)
[2020-11-01 07:59] LABS: MICROSCOPIC INDICATED
[2020-11-01 08:16] LABS: MD MORPH REVIEW ONLY
[2020-11-01 08:18] LABS: ANISOCYTOSIS 1+
[2020-11-01 08:19] LABS: <PLATELET ESTIMATE> DECREASED; <PLT MORPHOLOGY> NORMAL PLT MORPH
[2020-11-01] MEDS ORDERED: ONDANSETRON ODT 4 MG ONE (08:33)
[2020-11-01 09:05] VITALS: BP 145/82
--- NOTE | 2020-11-01 09:55 | NUR ---
Patient/Caregiver given discharge instructions and they have confirmed that they understand the instructions. Patient ambulatory with steady gait.
[2020-11-01] MEDS ORDERED: ONDANSETRON ODT 4 MG PO ONE (10:00)
== END 2020-11-01 10:25 | disposition home or self-care (01) ==
LOC: ED 07:22
DX: K85.20 Alcohol induced acute pancreatitis without necrosis or infection (principal); K70.40 Alcoholic hepatic failure without coma; R10.13 Epigastric pain; I10 Essential (primary) hypertension; K21.9 Gastro-esophageal reflux disease without esophagitis; F17.200 Nicotine dependence, unspecified, uncomplicated; Z90.49 Acquired absence of other specified parts of digestive tract
CPT/HCPCS: 36415; 80053; 81001; 82140; 83690; 85025; 87086; 99283; Q0162

== ENCOUNTER 2020-11-10 18:12 | Emergency (ER) | payer MEDICAID ==
[~2020-11-10] VITALS: Ht 167.6 cm; Wt 92.0 kg
--- NOTE | 2020-11-10 19:13 | NUR ---
constipation few days now having bright red blood. LUQ pain hx of enlarged spleen. States he is SOB. Recent covid swab neg Patient speaking full sentences during assesment. Patient states he was just here for elevated am[place] level. States he had smoked meth about a day ago
[2020-11-10 19:54] LABS: ANION GAP 6 mmol/L (5-15); CALCIUM 8.7 mg/dL (8.5-10.1); CHLORIDE 105 mmol/L (98-107)
[2020-11-10 19:58] LABS: ALANINE AMINOTRANSFERASE 42 U/L (12-78); ALKALINE PHOSPHATASE 240 U/L (45-117); BILIRUBIN,TOTAL 4.7 mg/dL (0.2-1.0)
[2020-11-10 19:59] LABS: BASOPHILS % (AUTO) 1 % (0-1); EOSINOPHILS % (AUTO) 2 % (1-7); LYMPHOCYTES % (AUTO) 26 % (22-44); MEAN CORPUSCULAR HEMOGLOBIN 36.8 pg (27.5-34.5); MEAN CORPUSCULAR HGB CONC 35.1 g/dL (33.2-36.2); MEAN PLATELET VOLUME 7.2 fL (7.4-10.4); MONOCYTES % (AUTO) 12 % (2-9); NEUTROPHILS % (AUTO) 59 % (42-75); PLATELET COUNT 95 x10^3/uL (130-400); RED BLOOD COUNT 4.39 x10^6/uL (4.38-5.82); RED CELL DISTRIBUTION WIDTH 14.4 % (9.4-14.8)
[2020-11-10 20:00] LABS: MD NO
[2020-11-10 20:13] VITALS: BP 132/87
== END 2020-11-10 20:16 | disposition home or self-care (01) ==
LOC: ED 19:42
DX: K64.8 Other hemorrhoids (principal); K59.00 Constipation, unspecified; I10 Essential (primary) hypertension; K21.9 Gastro-esophageal reflux disease without esophagitis; F17.200 Nicotine dependence, unspecified, uncomplicated; Z90.49 Acquired absence of other specified parts of digestive tract
CPT/HCPCS: 36415; 80053; 83690; 85025; 99283

== ENCOUNTER 2021-02-21 06:28 | Emergency (ER) | payer MEDICAID ==
[~2021-02-21] VITALS: Ht 167.6 cm; Wt 92.3 kg
[~2021-02-21 06:28] MED LIST changes: -ASPI-650 PO; +ASPI325T20 PO; -FOLI-17 PO; +FOLI1TAB32 PO; +HYDR-1067 PO; -HYDR-3240 PO; -LISI40TA PO; +LISI40TA9 PO
--- NOTE | 2021-02-21 06:36 | NUR ---
bib ems from home. pt stated he started having chest pain "earlier today" pt states he drank 3 tall boys and did meth last night and felt pain after having sex with . line started by ems and recieved 4mg zofran. ekg donem, labs drawnm, pt placed in all monitorsm, pt denies pain at this timem, but states it comes and goes. pt states feeling numbness down right arm sometimes. pt drowsy and dozing intermittently
[2021-02-21] MEDS ORDERED: ONDANSETRON 2MG/ML, 2ML IVPush ONE (07:00)
[2021-02-21] MEDS ORDERED: ONDANSETRON 2MG/ML, 2ML ONE (07:09)
[2021-02-21 07:16] LABS: MEAN CORPUSCULAR HEMOGLOBIN 38.3 pg (27.5-34.5); MEAN CORPUSCULAR HGB CONC 35.4 g/dL (33.2-36.2); MEAN PLATELET VOLUME 7.6 fL (7.4-10.4); PLATELET COUNT 75 x10^3/uL (130-400); RED BLOOD COUNT 4.03 x10^6/uL (4.38-5.82); RED CELL DISTRIBUTION WIDTH 14.8 % (9.4-14.8)
[2021-02-21 07:24] LABS: ALANINE AMINOTRANSFERASE 49 U/L (12-78); ALBUMIN 2.9 g/dL (3.4-5.0); ANION GAP 9 mmol/L (5-15); CALCIUM 8.6 mg/dL (8.5-10.1); CHLORIDE 104 mmol/L (98-107); CREATININE 0.71 mg/dL (0.7-1.3)
[2021-02-21 07:29] LABS: ALKALINE PHOSPHATASE 374 U/L (45-117); TOTAL PROTEIN 8.3 g/dL (6.4-8.2); TROPONIN I < 0.015 ng/mL (0.000-0.045)
[2021-02-21 07:42] LABS: MD YES
[2021-02-21 07:46] LABS: BAND#(MANUAL) 0.08 x10^3/uL; BANDS%(MANUAL) 2 % (0-7); BASOS#(MANUAL) 0.08 x10^3/uL (0-0.1); BASOS% (MANUAL) 2 % (0-1); EOS#(MANUAL) 0.04 x10^3/uL (0.0-0.4); EOS% (MANUAL) 1 % (1-7)
[2021-02-21 07:47] LABS: LYMPHS% (MANUAL) 36 % (22-44); MONOS#(MANUAL) 0.27 x10^3/uL (0.3-2.7); MONOS% (MANUAL) 7 % (2-9); SEG#(MANUAL) 2.03 x10^3/uL (1.8-6.8); SEGS% (MANUAL) 52 % (42-75)
[2021-02-21 07:48] LABS: <PLATELET ESTIMATE> DECREASED; ANISOCYTOSIS 1+
[2021-02-21 07:49] LABS: <PLT MORPHOLOGY> NORMAL PLT MORPH
[2021-02-21 10:19] VITALS: BP 118/70
--- NOTE | 2021-02-21 10:20 | NUR ---
Patient/Caregiver given discharge instructions and they have confirmed that they understand the instructions. Patient ambulatory with steady gait.
== END 2021-02-21 10:22 | disposition home or self-care (01) ==
LOC: ED 08:43
DX: R07.89 Other chest pain (principal); F10.10 Alcohol abuse, uncomplicated; F14.10 Cocaine abuse, uncomplicated; I10 Essential (primary) hypertension; K21.9 Gastro-esophageal reflux disease without esophagitis; Z90.49 Acquired absence of other specified parts of digestive tract; Y90.0 Blood alcohol level of less than 20 mg/100 ml
CPT/HCPCS: 36415; 71045; 80053; 80320; 84484; 85025; 93005; 96374; 99285; J2405; G0480

== ENCOUNTER 2021-05-09 02:48 | Emergency (ER) | payer MEDICAID ==
[~2021-05-09 02:48] MED LIST changes: -HYDR-1067 PO; +HYDR-2214 PO
--- NOTE | 2021-05-09 02:52 | NUR ---
pt called back to triage and states "fuck this, im leaving" and walked out of ed refusing to be triaged.
== END 2021-05-09 03:03 | disposition left against medical advice (07) ==
LOC: ED 03:00
DX: R10.9 Unspecified abdominal pain (principal); Z53.21 Procedure and treatment not carried out due to patient leaving prior to being seen by health care provider

== ENCOUNTER 2021-07-18 12:07 | Emergency (ER) | payer OTHER ==
[~2021-07-18] VITALS: Ht 167.6 cm; Wt 81.8 kg
--- NOTE | 2021-07-18 12:30 | NUR ---
BIB EMS FROM [facility], LUQ ABD PAIN, DARK BLOODY STOOL, BLOOD IN VOMIT. MICHAEL DEL TORO PA AT BEDSIDE. PT ASSESSMENT REVIEWED, -GUAIC, POC DISCUSSED AND QUESTIONS ANSWERED. PT IN CUSTODY, [facility] OFFICERS X 2 AT BEDSIDE. CALL LIGHT W/I REACH
[2021-07-18] MEDS ORDERED: FAMOTIDINE 20 MG/2 ML IVPush ONE (13:00)
[2021-07-18] MEDS ORDERED: ONDANSETRON 2MG/ML, 2ML IVPush ONE (13:00)
[2021-07-18] MEDS ORDERED: MORPHINE SULFATE 4 MG/ML, 1ML IVPush PRN (13:00)
[2021-07-18] MEDS ORDERED: SODIUM CHLORIDE 0.9% 1,000ML IVBOLUS ONE (13:00)
[2021-07-18] MEDS ORDERED: SODIUM CHLORIDE FLUSH 10ML SYR IVF ONE (13:00)
--- NOTE | 2021-07-18 13:25 | NUR ---
BREAK RN::orders verified with prescribing pa. ID braclet on pt is incorrect, registration notified. 5 rights checked.
[2021-07-18 14:59] LABS: MICROSCOPIC INDICATED
[2021-07-18 15:01] LABS: BASOPHILS % (AUTO) 1 % (0-1); EOSINOPHILS % (AUTO) 2 % (1-7); LYMPHOCYTES % (AUTO) 18 % (22-44); MEAN CORPUSCULAR HEMOGLOBIN 38.4 pg (27.5-34.5); MEAN CORPUSCULAR HGB CONC 34.9 g/dL (33.2-36.2); MEAN PLATELET VOLUME 7.5 fL (7.4-10.4); MONOCYTES % (AUTO) 9 % (2-9); NEUTROPHILS % (AUTO) 70 % (42-75); PLATELET COUNT 55 x10^3/uL (130-400); RED BLOOD COUNT 3.96 x10^6/uL (4.38-5.82)
[2021-07-18 15:12] LABS: ALANINE AMINOTRANSFERASE 49 U/L (12-78); ALBUMIN 2.2 g/dL (3.4-5.0); ANION GAP 5 mmol/L (5-15); CALCIUM 8.3 mg/dL (8.5-10.1); CHLORIDE 111 mmol/L (98-107); CREATININE 0.68 mg/dL (0.7-1.3)
[2021-07-18 15:14] LABS: ALKALINE PHOSPHATASE 312 U/L (45-117); BILIRUBIN,TOTAL 3.5 mg/dL (0.2-1.0); TOTAL PROTEIN 7.9 g/dL (6.4-8.2)
[2021-07-18 16:03] VITALS: BP 120/76
--- NOTE | 2021-07-18 16:09 | NUR ---
SBAR RPT INCLUDING D/C INSTRUCTIONS CALLED TO [facility] RNVIANEY.
== END 2021-07-18 16:10 | disposition home or self-care (01) ==
LOC: EDUNIT# 12:07 → ED 14:54
DX: R10.11 Right upper quadrant pain (principal); R10.13 Epigastric pain; R10.12 Left upper quadrant pain; R11.2 Nausea with vomiting, unspecified; R94.5 Abnormal results of liver function studies; K21.9 Gastro-esophageal reflux disease without esophagitis; G40.909 Epilepsy, unspecified, not intractable, without status epilepticus; Z90.49 Acquired absence of other specified parts of digestive tract
CPT/HCPCS: 36415; 76700; 80053; 81001; 83690; 85025; 96361; 96374; 96375; 99284; J2270; J2405; J7030

== ENCOUNTER 2021-07-18 12:33 | Emergency (ER) | payer OTHER, MEDICAID ==
[2021-07-18] MEDS ORDERED: MORPHINE SULFATE 4 MG/ML, 1ML ONE (13:03)
[2021-07-18] MEDS ORDERED: FAMOTIDINE 20 MG/2 ML ONE (13:03)
[2021-07-18] MEDS ORDERED: ONDANSETRON 2MG/ML, 2ML ONE (13:03)
== END 2021-07-18 17:38 ==
LOC: ED 16:55
DX: Z53.21 Procedure and treatment not carried out due to patient leaving prior to being seen by health care provider (principal)

== ENCOUNTER 2021-07-19 23:16 | Inpatient (IN) | payer MEDICAID, OTHER ==
[~2021-07-19] VITALS: Ht 170.2 cm; Wt 85.3 kg
--- NOTE | 2021-07-19 23:41 | NUR ---
EMMA FROM [facility] FOR PROGRESSIVE AMS X A FEW DAYS. SEEN HERE FOR SAME YESTERDAY FSBS 113, NO OBVIOUS ORAL TRAUMA, NO URINARY INCONTINENCE PUPILS 2-3 AND REACTIVE, NO ETOH SMELL REPORTED HX LIVER DISEASE/GI BLEED PT STATING "YOU ARE PISSING ME OFF MAN" PT ASO STATING "VCAN I JUST SAY SORRY" PT APPEARS CONFUSED TRIAGE NOTE BY TOBI
--- NOTE | 2021-07-19 23:42 | NUR ---
ATTEMPTED TO HAVE PT URINATE BUT PT COULD NOT DO IT. ATTEMPT UNSUCCESSFUL
--- NOTE | 2021-07-19 23:49 | NUR ---
RESORT HOST AND SEIZURE PRECAUITIOONS IMPLEMEMNTED PADS ON SIDE RAILS, SUCTION AT BEDSIDE. COMPONENTS ENGINEER AT BEDSIDE.
--- NOTE | 2021-07-20 | NUR ---
PT OFF UNIT IN IMAGING. NO CHANGE IN CONDITION
[2021-07-20 00:13] LABS: ALANINE AMINOTRANSFERASE 51 U/L (12-78); ALBUMIN 2.4 g/dL (3.4-5.0); ANION GAP 5 mmol/L (5-15); CALCIUM 8.4 mg/dL (8.5-10.1); CHLORIDE 110 mmol/L (98-107); CREATININE 0.73 mg/dL (0.7-1.3)
[2021-07-20 00:15] LABS: ALKALINE PHOSPHATASE 315 U/L (45-117); TOTAL PROTEIN 7.9 g/dL (6.4-8.2)
[2021-07-20 00:16] LABS: MEAN CORPUSCULAR HEMOGLOBIN 38.3 pg (27.5-34.5); MEAN CORPUSCULAR HGB CONC 34.8 g/dL (33.2-36.2); MEAN PLATELET VOLUME 7.8 fL (7.4-10.4); PLATELET COUNT 59 x10^3/uL (130-400); RED BLOOD COUNT 3.98 x10^6/uL (4.38-5.82); RED CELL DISTRIBUTION WIDTH 14.9 % (9.4-14.8)
[2021-07-20 00:19] LABS: SALICYLATE LEVEL < 1.7 mg/dL (2.8-20.0)
[2021-07-20] MEDS ORDERED: LACTULOSE 20 GM/30 ML UDC PO ONE (00:30)
[2021-07-20 00:39] LABS: BAND#(MANUAL) 0.34 x10^3/uL; BANDS%(MANUAL) 8 % (0-7); EOS#(MANUAL) 0.04 x10^3/uL (0.0-0.4); EOS% (MANUAL) 1 % (1-7); LYMPH#(MANUAL) 0.84 x10^3/uL (1-3.4); LYMPHS% (MANUAL) 20 % (22-44); MONOS#(MANUAL) 0.34 x10^3/uL (0.3-2.7); MONOS% (MANUAL) 8 % (2-9); SEG#(MANUAL) 2.65 x10^3/uL (1.8-6.8); SEGS% (MANUAL) 63 % (42-75)
--- NOTE | 2021-07-20 00:39 | NUR ---
ATTEMPTED TO GIVE ORAL LACTULOSE TO PT BUT PT WAS SPITTING IT BACK OUT ALL OVER HIMSELF AND STAFF. SPOKE TO ERMD AND WE WILL ATTEMPT TO GIVE IT RECTALLY. PT VERY AGGRESIVE AND CONFUSED. YELLING AT STAFF. ATTACHED TO MONITORS. VSS. WCTM
[2021-07-20 00:40] LABS: <PLATELET ESTIMATE> DECREASED; <PLT MORPHOLOGY> NORMAL PLT MORPH; ANISOCYTOSIS 1+
[2021-07-20] MEDS ORDERED: LORazepam 2 MG/ML, 1ML ONE (00:48)
[2021-07-20] MEDS ORDERED: ONDANSETRON 2MG/ML, 2ML ONE (00:48)
[2021-07-20] MEDS ORDERED: LORazepam 2 MG/ML, 1ML IVPush ONE (01:00)
[2021-07-20] MEDS ORDERED: LACTULOSE 3.3 GM/5 ML ORAL.SOL RC ONE (01:00)
--- NOTE | 2021-07-20 01:21 | NUR ---
ENEMA IMPLEMENTED. PT TOLERATED WELL. PT SOMNOLENT DUE TO ATIVAN PTATTACHED TO ALL MONITORS, VSS, WCTM BREATHING EVEN AND UNLABORED.
[2021-07-20] MEDS ORDERED: LABETALOL 5MG/ML, 20ML IVPush PRN (01:30)
[2021-07-20] MEDS ORDERED: ONDANSETRON 2MG/ML, 2ML IVPush PRN (01:30)
[2021-07-20] MEDS ORDERED: MELATONIN 5 MG TABLET PO PRN (01:30)
--- NOTE | 2021-07-20 02:27 | NUR ---
Report given to AUGUST Tamayo
[2021-07-20 02:48] VITALS: BP 135/79
[2021-07-20] MEDS: ENOXAPARIN 40 MG/0.4 ML SQ SCH (03:19)
[2021-07-20 06:08] LABS: MEAN CORPUSCULAR HEMOGLOBIN 37.8 pg (27.5-34.5); MEAN CORPUSCULAR HGB CONC 34.5 g/dL (33.2-36.2); MEAN PLATELET VOLUME 7.6 fL (7.4-10.4); PLATELET COUNT 67 x10^3/uL (130-400); RED BLOOD COUNT 4.12 x10^6/uL (4.38-5.82); RED CELL DISTRIBUTION WIDTH 14.4 % (9.4-14.8)
[2021-07-20 06:15] LABS: ALANINE AMINOTRANSFERASE 53 U/L (12-78); ALBUMIN 2.6 g/dL (3.4-5.0); ANION GAP 8 mmol/L (5-15); CALCIUM 8.9 mg/dL (8.5-10.1); CHLORIDE 112 mmol/L (98-107); INTERNATIONAL NORMALIZED RATIO 1.6 (0.93-1.1); PROTHROMBIN TIME 16.7 Seconds (9.6-11.5)
[2021-07-20 06:18] LABS: ALKALINE PHOSPHATASE 327 U/L (45-117); CREATININE 0.76 mg/dL (0.7-1.3); TOTAL PROTEIN 8.5 g/dL (6.4-8.2)
[2021-07-20 06:40] LABS: <PLATELET ESTIMATE> DECREASED; <PLT MORPHOLOGY> NORMAL PLT MORPH; ANISOCYTOSIS 1+; BAND#(MANUAL) 0.11 x10^3/uL; BANDS%(MANUAL) 2 % (0-7); BASOS#(MANUAL) 0.05 x10^3/uL (0-0.1); BASOS% (MANUAL) 1 % (0-1); LYMPH#(MANUAL) 1.03 x10^3/uL (1-3.4); LYMPHS% (MANUAL) 19 % (22-44); MONOS#(MANUAL) 0.65 x10^3/uL (0.3-2.7); MONOS% (MANUAL) 12 % (2-9); SEG#(MANUAL) 3.56 x10^3/uL (1.8-6.8); SEGS% (MANUAL) 66 % (42-75)
[2021-07-20] MEDS: LACTULOSE 20 GM/30 ML UDC PO SCH ×4 (07:00→21:17)
[2021-07-20 09:00] VITALS: BP 149/91
[2021-07-20] MEDS ORDERED: LACTULOSE 10 GM/15 ML UDC PO SCH (09:00)
[2021-07-20] MEDS: LACTULOSE 3.3 GM/5 ML ORAL.SOL RC SCH ×3 (09:00→21:00)
[2021-07-20 14:00] VITALS: BP 127/83
[2021-07-20 18:00] LABS: AMPHETAMINE SCREEN, URINE Negative (Negative); BARBITURATE SCREEN, URINE Negative (Negative); BENZODIAZEPINE SCREEN, URINE Negative (Negative); CANNABINOID SCREEN, URINE Negative (Negative); COCAINE SCREEN, URINE Negative (Negative); METHADONE SCREEN, URINE Negative (Negative); OPIATE SCREEN, URINE Negative (Negative)
[2021-07-20 18:38] VITALS: BP 146/86
[2021-07-21 01:13] VITALS: BP 131/82
[2021-07-21] MEDS: ENOXAPARIN 40 MG/0.4 ML SQ SCH (03:25)
[2021-07-21] MEDS: LACTULOSE 20 GM/30 ML UDC PO SCH ×4 (06:35→21:03)
[2021-07-21 07:27] VITALS: BP 135/87
[2021-07-21] MEDS: LACTULOSE 3.3 GM/5 ML ORAL.SOL RC SCH ×3 (09:00→21:00)
[2021-07-21 14:52] VITALS: BP 132/80
[2021-07-21] MEDS: LORazepam 0.5MG TABLET PO PRN (18:43)
[2021-07-21 20:50] VITALS: BP 131/75
[2021-07-21 23:09] VITALS: BP 119/70
[2021-07-21 23:10] LABS: OCCULT BLOOD NEGATIVE (NEGATIVE)
[2021-07-22 00:42] VITALS: BP 119/70
[2021-07-22] MEDS: ENOXAPARIN 40 MG/0.4 ML SQ SCH (02:42)
[2021-07-22] MEDS: LACTULOSE 20 GM/30 ML UDC PO SCH ×4 (06:05→19:41)
[2021-07-22 06:50] VITALS: BP 138/76
[2021-07-22] MEDS: LACTULOSE 3.3 GM/5 ML ORAL.SOL RC SCH ×3 (08:57→21:25)
[2021-07-22 13:52] VITALS: BP 128/72
[2021-07-22 15:27] LABS: OCCULT BLOOD NEGATIVE (NEGATIVE)
[2021-07-22] MEDS: LORazepam 0.5MG TABLET PO PRN (19:41)
[2021-07-22 20:56] VITALS: BP 125/76
[2021-07-23 00:34] VITALS: BP 141/82
[2021-07-23] MEDS ORDERED: TRAZODONE 50MG TABLET PO PRN (01:30)
[2021-07-23] MEDS: ENOXAPARIN 40 MG/0.4 ML SQ SCH (03:14)
[2021-07-23] MEDS: LACTULOSE 20 GM/30 ML UDC PO SCH ×2 (05:38→11:34)
[2021-07-23 06:04] LABS: BASOPHILS % (AUTO) 1 % (0-1); EOSINOPHILS % (AUTO) 3 % (1-7); LYMPHOCYTES % (AUTO) 34 % (22-44); MEAN CORPUSCULAR HEMOGLOBIN 37.3 pg (27.5-34.5); MEAN CORPUSCULAR HGB CONC 34.4 g/dL (33.2-36.2); MEAN PLATELET VOLUME 7.6 fL (7.4-10.4); MONOCYTES % (AUTO) 11 % (2-9); NEUTROPHILS % (AUTO) 52 % (42-75); PLATELET COUNT 55 x10^3/uL (130-400); RED BLOOD COUNT 3.76 x10^6/uL (4.38-5.82); RED CELL DISTRIBUTION WIDTH 13.9 % (9.4-14.8)
[2021-07-23 06:09] LABS: ALBUMIN 2.1 g/dL (3.4-5.0); ANION GAP 5 mmol/L (5-15); CALCIUM 8.1 mg/dL (8.5-10.1); CHLORIDE 106 mmol/L (98-107)
[2021-07-23 06:13] LABS: ALANINE AMINOTRANSFERASE 45 U/L (12-78); ALKALINE PHOSPHATASE 280 U/L (45-117); BILIRUBIN,TOTAL 3.1 mg/dL (0.2-1.0); CREATININE 0.53 mg/dL (0.7-1.3); TOTAL PROTEIN 7.4 g/dL (6.4-8.2)
[2021-07-23] MEDS: LACTULOSE 3.3 GM/5 ML ORAL.SOL RC SCH (08:01)
[2021-07-23 08:29] VITALS: BP 124/78
[2021-07-23] MEDS ORDERED: ESOM20CA PO (11:06)
[2021-07-23] MEDS ORDERED: LACT20SO13 PO (11:06)
[2021-07-23] MEDS ORDERED: PROP10TA16 PO (11:06)
[2021-07-23] MEDS ORDERED: POLY17PO5 PO (11:06)
== END 2021-07-23 14:21 | DRG 432 ==
LOC: MERGE 23:16 → ED 07-20 00:43 → EDIP 07-20 01:30 → 3N 07-20 02:45
PROVIDERS: ADMIT Internal Medicine; ATTEND Family Medicine
DX: K70.30 Alcoholic cirrhosis of liver without ascites (principal); K72.00 Acute and subacute hepatic failure without coma; D68.9 Coagulation defect, unspecified; K92.0 Hematemesis; F14.10 Cocaine abuse, uncomplicated; F15.10 Other stimulant abuse, uncomplicated; F17.200 Nicotine dependence, unspecified, uncomplicated; F41.9 Anxiety disorder, unspecified; K21.9 Gastro-esophageal reflux disease without esophagitis; I10 Essential (primary) hypertension; K59.09 Other constipation; Z90.49 Acquired absence of other specified parts of digestive tract; R00.0 Tachycardia, unspecified; Z88.8 Allergy status to other drugs, medicaments and biological substances; Z88.1 Allergy status to other antibiotic agents
CPT/HCPCS: 36415; 70450; 71045; 80053; 80074; 80299; 80307; 80320; 80329; 82140; 82272; 82962; 83605; 83735; 84443; 85025; 85610; 85730; 93005; 99285; G0378; J1650; J2405; G0480; J2060